=== PATIENT | female | born 2000 | race Two or more races ===

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

== ENCOUNTER 2023-04-24 12:17 | Outpatient (REF) | payer MEDICAID, SELFPAY ==
--- NOTE | ~2023-04-24 | XR_ITS ---
EXAMINATION: XR CHEST CLINICAL INFORMATION: Cough for 7 months COMPARISON: Left RIBS of 08/30/2020 radiographs. Chest radiographs of 10/19/2012. TECHNIQUE: 2 views of the chest were obtained. FINDINGS: There is no gross pneumothorax. Lungs are well-inflated. Heart size is normal. Mild levoscoliosis of the thoracic spine. There is no pleural effusion. Mild hazy opacity in the lower left lung may represent pneumonia. Mild degenerative changes in the thoracic spine. XR/XR chest 2V IMPRESSION: Mild hazy opacity in the lower left lung may represent pneumonia. Recommend follow-up imaging in 4-6 weeks to confirm resolution and exclude underlying pathology. Stat report provided as requested to the referring clinician at the time the exam was presented for interpretation on 04/24/2023 at 12:55 PM.
[2023-04-24 13:34] LABS: Hematocrit 43.5 % (37.0-47.0); Hemoglobin 13.8 g/dl (12.0-16.0); Mean Corpuscular HGB Conc 31.7 g/dl (31.0-35.0); Mean Corpuscular Hemoglobin 27.2 pg (27.0-33.0); Mean Corpuscular Volume 85.6 fL (80.0-98.0); Mean Platelet Volume 9.9 fL (9.4-12.3); Platelet Count 359 X10*3/uL (160-400); Red Blood Count 5.08 X10*6/uL (4.20-5.50); Red Cell Distribution Width 14.2 % (11.0-16.0); White Blood Count 7.2 X10*3/uL (4.8-10.8)
[2023-04-24 14:27] LABS: Estimated Average Glucose 100 mg/dL; Hemoglobin A1c % 5.1 % (<6.0)
[2023-04-24 14:29] LABS: Alanine Aminotransferase 11 U/L (0-31); Albumin Level 4.4 g/dL (3.5-5.0); Alkaline Phosphatase 96 U/L (39-117); Anion Gap 10 (12-20); Aspartate Amino Transferase 16 U/L (5-31); Bilirubin Total 0.2 mg/dL (0.0-1.0); Blood Urea Nitrogen 7 mg/dL (9-16); Calcium 9.4 mg/dL (8.4-10.2); Carbon Dioxide 25 mmol/L (22-29); Chloride 110 mmol/L (96-108); Cholesterol 155 mg/dL (<200); Estimated Glomerular Filt Rate > 60; Glucose Random 84 mg/dL (60-115); HDL Cholesterol 31 mg/dL (>40); LDL Cholesterol Calculated 89 mg/dL (<100); Potassium 3.8 mmol/L (3.3-5.1); Sodium 141 mmol/L (135-145); Total Protein 7.9 g/dL (6.5-8.0); Triglycerides 175 mg/dL (<150)
[2023-04-24 14:35] LABS: TSH reflex Free T4 1.75 uIU/mL (0.32-4.0)
[2023-04-25 02:32] LABS: CT PCR NOT DETECTED (Not Detect.); NG PCR NOT DETECTED (Not Detect.)
[2023-04-25 08:26] LABS: Syphilis Screen Nonreactive (Nonreactive)
[2023-04-25 08:45] LABS: HBsAGNum1 0.41 S/CO (0.00-0.99); Hepatitis B Surface Antigen Negative (Negative)
[2023-04-25 08:48] LABS: HBS Num1 1.99 mIU/mL (0-7.99); HBc Num1 0.07 S/CO (0.00-0.79); HIV AB/AG Nonreactive (Nonreactive); HIV Num 1 0.07 S/CO (0.00-0.99); Hepatitis B Core Antibody Nonreactive (Nonreactive); ~HepC Num1 0.09 S/CO (0.00-0.79); ~Hepatitis B Surface Antibody NONREACTIVE (Nonreactive); ~Hepatitis C Antibody Nonreactive (Nonreactive)
== END 2023-04-24 12:18 | disposition home or self-care (01) ==
LOC: HO.HHCX 12:17
PROVIDERS: Visit Provider Student in an Organized Health Care Education/Training Program
DX: Z00.00 Encounter for general adult medical examination without abnormal findings (principal); R05.9 Cough, unspecified; Z11.3 Encounter for screening for infections with a predominantly sexual mode of transmission
CPT/HCPCS: 0353U; 36415; 71046; 80053; 80061; 83036; 84443; 85027; 86704; 86706; 86780; 86803; 87340; 87389

== ENCOUNTER 2023-06-11 15:22 | Outpatient (REF) | payer MEDICAID, SELFPAY ==
[2023-06-11] MEDS: iohexoL 350 MG/ML 75 ML INFUS..BTL 65 ML IV (16:12)
== END 2023-06-11 15:23 | disposition home or self-care (01) ==
LOC: HO.CT 15:22
PROVIDERS: PCP Pediatrics; Visit Provider Student in an Organized Health Care Education/Training Program
DX: R05.3 Chronic cough (principal); R93.89 Abnormal findings on diagnostic imaging of other specified body structures
CPT/HCPCS: 71260; Q9967

== ENCOUNTER 2023-08-14 15:14 | Outpatient (AMB) | payer MEDICAID, SELFPAY ==
[2023-08-14 15:21] VITALS: BP 118/70; PULSE 72; O2SAT 98; BMI 26.4
--- NOTE | 2023-08-14 15:21 | MHC.OFFVIS ---
Intake Vital Signs 08/14/23 15:21 Height 5 ft 1 in Weight 140 lb BMI 26.4 BP 118/70 Blood Pressure Location Lt brachial Position Sitting Pulse 72 Pulse Source Pulse Oximeter Pulse Oximetry (%) 98 Oxygen Delivery Method Room Air Intake Visit Reasons: Cough Blog Writer Required: No Appliance Adjuster: Appliance Adjuster offered & declined Accompanied by: Mother Allergies No Known Allergies Allergy (Unverified 08/14/23 15:23) Medication List - Last Reconciled 08/14/23 by Nusrat Schmitt LPN cetirizine (Allergy Relief (cetirizine)) 10 mg PO DAILY PRN HPI Cough HPI Details Omayrelramy is a pleasant 23-year-old female, never smoker, with no significant past medical history. She was referred from PCP for pulmonary evaluation the persistent dry cough. She reports cough has been present for the past year that is dry in nature and not related to any triggers or activity. She denies any dyspnea, wheezing, or chest tightness. She denies prior diagnosis of asthma. She reports brother has asthma. She reports symptoms consistent with environmental allergies using claritin for spring allergies with good effect. She denies postnasal drip or GERD symptoms. She does have 2 dogs and 1 cat. She notes hives after petting either animal. She denies eczema. She denies any occupational exposures. Of note, PCP sent for CXR in April which was suggestive of pneumonia, however repeat imaging was unremarkable. She denies any treatment with antibiotics or prednisone during that time. [facility] Social History (Updated 08/14/23 @ 15:25 by Nusrat Schmitt LPN) Patient Tobacco Use Status: Never used Tobacco Smoked in Last 30 Days: No Review of Systems Const Denies chills, Denies excessive sweating, Denies fever(s), Denies headache(s) and Denies night sweats Eyes Denies dry eyes, Denies irritation and Denies itchy eyes ENT Reports Normal hearing present, Denies headache(s), Denies nasal congestion, Denies nasal discharge, Denies post nasal drip and Denies sore throat Card Denies chest pain, Denies chest pain at rest, Denies chest pain with activity, Denies claudication, Denies leg edema, Denies dyspnea, Denies dyspnea on exertion, Denies orthopnea and Denies paroxysmal nocturnal dyspnea Resp Denies chest congestion, Reports cough, Denies excessive phlegm production, Denies pain on inspiration, Denies pain with cough, Denies dyspnea, Denies dyspnea on exertion, Denies stridor and Denies wheezing Musc Denies myalgias Neuro Reports Normal hearing present and Denies headache(s) Endo Denies excessive sweating Brain/Lymph Denies lymphadenopathy Aller/Immun Denies itchy eyes, Denies seasonal rhinorrhea and Denies wheezing Physical Exam Vital Signs: Last Vital Signs Pulse 72 08/14/23 15:21 BP 118/70 08/14/23 15:21 Pulse Ox 98 08/14/23 15:21 Oxygen Delivery Method Room Air 08/14/23 15:21 BMI result Body Mass Index 26.4 Const General: cooperative, healthy appearing, comfortable, no acute distress, well developed and alert Nutritional Appearance: obese Orientation/consciousness: patient oriented x3 Limitations: no limitations HEENT Head: Yes normal to inspection, Yes normocephalic and Yes atraumatic Ears: hearing grossly normal bilaterally and external ears normal Eyes General: appearance normal, both eyes and all related structures Eyelids: Yes eyelids normal Sclerae: sclerae normal EOM: EOMs intact bilaterally Neck Neck: Yes normal visual inspection and Yes no lymphadenopathy Lymphatic: no lymphadenopathy noted Chest Chest palpation & inspection: normal inspection of the chest Resp Other: persistent dry cough throughout visit with diminished lung sounds on expiration, cough worsened with initiation of albuterol neb Effort & Inspection: normal respiratory effort, able to speak in complete sentences, no audible wheezes, no stridor, not tachypneic, no tripod positioning and no use of accessory muscles Cardio Jugular venous distension: no JVD Rate: regular rate Rhythm: regular rhythm Skin Other: warm, dry General skin exam: no rashes or lesions noted Neuro General: patient oriented x3 Cranial nerves: Yes Normal hearing present Cognition (Neuro): normal cognition Gait exam (Neuro): Normal gait present Extrem General: Yes normal to inspection, Yes capillary refill normal, Yes no clubbing, cyanosis or edema and Yes no pedal edema Psych Appearance: grossly normal and well kempt Speech and movement: Normal speech and movement present and Clear speech present Affect: normal affect Attitude: cooperative Thought process: Normal thought process present Thought content: Normal thought content present Insight: Good insight present (Psych) Judgement: Good judgement present (Psych) Office Procedures Nebulizer Treatment Nebulizer Treatment [id number]/[id number] RX initial, or Nebulizer Subsequent Treatment Office Meds albuterol sulfate 2.5 mg/3 mL (0.083 %) solution for nebulization Performing Provider: Kelsey Noble NP Performing Location: [facility] Pulmonology Services-[facility] Administered by: Nusrat Schmitt LPN on 08/14/23 15:51 Dose Route Admin Location Dispensed Lot Number Expiration Date [facility] Director Phone 2.5 mg inhalation 3 mL [id number] 05/09/24 [id number] [facility] Assessment & Plan Assessment & Plan (1) Reactive airway disease: Code(s): J45.909 - Unspecified asthma, uncomplicated (2) Environmental allergies: Code(s): Z91.09 - Other allergy status, other than to drugs and biological substances (3) Cough: Code(s): R05.9 - Cough, unspecified Plan Omayrely's symptoms are suggestive of reactive airway disease/asthma with allergic contribution. Patient was given albuterol nebulizer in office, but discontinued after initiation as patient's cough worsened. Will hold off on any empiric treatment and send for PFT/RAST to evaluate. All questions were answered and patient is in agreement of plan. Will follow up to review results or sooner if needed. Orders: Orders Immunoglobulin E Today Z91.09 - Other allergy status, other than to drugs and biological substances PFT pulmonary function test Today R05.9 - Cough, unspecified Complete Blood Count Auto Diff Today Z91.09 - Other allergy status, other than to drugs and biological substances AMB Nebulizer Treatment Today J45.909 - Unspecified asthma, uncomplicated Coding Level of Care Code New Pt Level 4 (21630) Diagnoses Reactive airway disease J45.909 Environmental allergies Z91.09 Cough R05.9 CPT Codes Nebulizer Treatment - Nebulizer Treatment, initial or subsequent: [id number] RX initial, or Nebulizer Subsequent Treatment ([id number])
== END 2023-08-14 16:00 | disposition home or self-care (01) ==
PROVIDERS: PCP Student in an Organized Health Care Education/Training Program; Referring Provider Student in an Organized Health Care Education/Training Program; Visit Provider Nurse Practitioner Family
DX: J45.909 Unspecified asthma, uncomplicated (principal); Z91.09 Other allergy status, other than to drugs and biological substances; R05.9 Cough, unspecified
CPT/HCPCS: 99204

== ENCOUNTER → 2023-08-14 15:14 | Outpatient (BNVA) | payer MEDICAID, SELFPAY | PROVIDERS: PCP Student in an Organized Health Care Education/Training Program; Referring Provider Student in an Organized Health Care Education/Training Program; Visit Provider Nurse Practitioner Family | DX: J45.909 Unspecified asthma, uncomplicated (principal); Z91.09 Other allergy status, other than to drugs and biological substances; R05.9 Cough, unspecified | CPT/HCPCS: 94640; 99212 ==

== ENCOUNTER 2023-09-04 11:49 | Outpatient (REF) | payer MEDICAID, SELFPAY ==
[2023-09-04 13:30] LABS: MANUAL DIFF FLAG NO
[2023-09-04 13:48] LABS: Basophils Percent Auto 0.4 % (0-2); Eosinophils Absolute Auto 0.4 X10*3/uL (0.0-0.4); Eosinophils Percent Auto 4.4 % (0-4); Hematocrit 41.5 % (37.0-47.0); Hemoglobin 13.3 g/dl (12.0-16.0); Imm Gran Abs Auto 0.02 X10*3/uL (0.00-0.03); Imm Gran Pct Auto 0.2 % (0.0-0.4); Lymphocytes Absolute Auto 1.7 X10*3/uL (1.2-4.9); Mean Corpuscular Hemoglobin 26.9 pg (27.0-33.0); Mean Corpuscular Volume 83.8 fL (80.0-98.0); Mean Platelet Volume 10.1 fL (9.4-12.3); Monocytes Absolute Auto 0.4 X10*3/uL (0.1-1.2); Monocytes Percent Auto 5.3 % (2-11); Neutrophils Absolute Auto 5.6 x10*3/uL (2.0-8.3); Neutrophils Percent Auto 68.7 % (45-73); Platelet Count 357 X10*3/uL (160-400); Red Blood Count 4.95 X10*6/uL (4.20-5.50); Red Cell Distribution Width 14.8 % (11.0-16.0); White Blood Count 8.1 X10*3/uL (4.8-10.8)
[2023-09-04 13:57] LABS: Alanine Aminotransferase 21 U/L (0-31); Albumin Level 4.2 g/dL (3.5-5.0); Alkaline Phosphatase 79 U/L (39-117); Aspartate Amino Transferase 19 U/L (5-31); Bilirubin Direct < 0.2 mg/dL (0.0-0.5); Bilirubin Total 0.2 mg/dL (0.0-1.0); Total Protein 7.7 g/dL (6.5-8.0)
[2023-09-15 13:34] LABS: Immunoglobulin E 901 kU/L (<OR=114)
== END 2023-09-04 11:50 | disposition home or self-care (01) ==
LOC: HO.HHCL 11:49
PROVIDERS: Advanced Practice Midwife; Visit Provider Nurse Practitioner Family
DX: Z12.4 Encounter for screening for malignant neoplasm of cervix (principal); R10.11 Right upper quadrant pain; Z91.09 Other allergy status, other than to drugs and biological substances
CPT/HCPCS: 36415; 80076; 82785; 85025; 88142

== ENCOUNTER 2023-09-27 16:14 | Outpatient (REF) | payer MEDICAID, SELFPAY ==
[2023-10-02 23:28] LABS: Immunoglobulin A 244 mg/dL (47-310); Transglutaminase IgA <1.0 U/mL
== END 2023-09-27 16:15 | disposition home or self-care (01) ==
LOC: HO.HHCL 16:14
PROVIDERS: Visit Provider Registered Nurse
DX: R10.13 Epigastric pain (principal); R10.84 Generalized abdominal pain
CPT/HCPCS: 36415; 82784; 86364

== ENCOUNTER 2023-10-15 20:52 | Outpatient (REF) | payer MEDICAID, SELFPAY | END 2023-10-15 20:53 | disposition home or self-care (01) | LOC: HO.HHCLNP 20:52 | PROVIDERS: Visit Provider Registered Nurse | DX: R10.13 Epigastric pain (principal); R11.2 Nausea with vomiting, unspecified | CPT/HCPCS: 87338 ==

== ENCOUNTER 2024-03-13 15:52 | Outpatient (AMB) | payer MEDICAID, SELFPAY ==
--- NOTE | 2024-03-13 15:53 | MHC.OFFVIS ---
Vital Signs 03/13/24 15:54 Height 5 ft 1 in Weight 120 lb 6 oz BMI 22.7 BP 120/78 Blood Pressure Location Rt brachial Position Sitting Pulse 61 Pulse Source Pulse Oximeter Pulse Oximetry (%) 98 Oxygen Delivery Method Room Air Intake Visit Reasons: cough Allergies No Known Allergies Allergy (Unverified 03/13/24 15:59) HPI HPI cough: Details: Maddy is a pleasant 23-year-old female, never smoker, with no significant past medical history. She was referred from PCP for pulmonary evaluation the persistent dry cough. She reports cough has been present for the past year that is dry in nature and not related to any triggers or activity. She denies any dyspnea, wheezing, or chest tightness. At the last visit, she was sent for labs and PFT. Today presents to review. Unfortunately, patient was never scheduled for PFT. Will have staff look into this. Since the last visit, she has had a 20 lb weight loss which she attributes to GI symptoms including abdominal pain, nausea and vomiting ultimately found to have significant constipation and started on miralax with improvements. She denies any reflux symptoms. COUNTS INCLUDE 234 BEDS AT THE [facility] Social History Patient Tobacco Use Status: Never used Tobacco Review of Systems Const Denies chills, Denies excessive sweating, Denies fever(s), Denies headache(s) and Denies night sweats Eyes Denies dry eyes, Denies irritation and Denies itchy eyes ENT Reports Normal hearing present, Denies headache(s), Denies nasal congestion, Denies nasal discharge, Denies post nasal drip and Denies sore throat Card Denies chest pain, Denies chest pain at rest, Denies chest pain with activity, Denies claudication, Denies leg edema, Denies dyspnea, Denies dyspnea on exertion, Denies orthopnea and Denies paroxysmal nocturnal dyspnea Resp Denies chest congestion, Reports cough, Denies excessive phlegm production, Denies pain on inspiration, Denies pain with cough, Denies dyspnea, Denies dyspnea on exertion, Denies stridor and Denies wheezing Musc Denies myalgias Neuro Reports Normal hearing present and Denies headache(s) Endo Denies excessive sweating Brain/Lymph Denies lymphadenopathy Aller/Immun Denies itchy eyes, Denies seasonal rhinorrhea and Denies wheezing Physical Exam Vital Signs: Last Vital Signs Pulse 61 03/13/24 15:54 BP 120/78 03/13/24 15:54 Pulse Ox 98 03/13/24 15:54 Oxygen Delivery Method Room Air 03/13/24 15:54 BMI result Body Mass Index 22.7 Const General: cooperative, healthy appearing, comfortable, no acute distress, well developed and alert Orientation/consciousness: patient oriented x3 Limitations: no limitations HEENT Head: Yes normal to inspection, Yes normocephalic and Yes atraumatic Ears: hearing grossly normal bilaterally and external ears normal Eyes General: appearance normal, both eyes and all related structures Eyelids: Yes eyelids normal Sclerae: sclerae normal EOM: EOMs intact bilaterally Neck Neck: Yes normal visual inspection and Yes no lymphadenopathy Lymphatic: no lymphadenopathy noted Chest Chest palpation & inspection: normal inspection of the chest Resp Other: persistent dry cough throughout visit with diminished lung sounds on expiration, cough worsened with initiation of albuterol neb Effort & Inspection: normal respiratory effort, able to speak in complete sentences, no audible wheezes, no stridor, not tachypneic, no tripod positioning and no use of accessory muscles Cardio Jugular venous distension: no JVD Rate: regular rate Rhythm: regular rhythm Skin Other: warm, dry General skin exam: no rashes or lesions noted Neuro General: patient oriented x3 Cranial nerves: Yes Normal hearing present Cognition (Neuro): normal cognition Gait exam (Neuro): Normal gait present Extrem General: Yes normal to inspection, Yes capillary refill normal, Yes no clubbing, cyanosis or edema and Yes no pedal edema Psych Appearance: grossly normal and well kempt Speech and movement: Normal speech and movement present and Clear speech present Affect: normal affect Attitude: cooperative Thought process: Normal thought process present Thought content: Normal thought content present Insight: Good insight present (Psych) Judgement: Good judgement present (Psych) Assessment & Plan Assessment & Plan (1) Asthma: Code(s): J45.909 - Unspecified asthma, uncomplicated Category: Medical (2) Environmental allergies: Code(s): Z91.09 - Other allergy status, other than to drugs and biological substances Category: Medical Plan Omayrely's symptoms are likely related to underlying asthma with a significant allergic component. She had mildly elevated eosinophil level and IgE <900. Will empirically start on ICS and Singulair. Reviewed side effects and discussed importance of good oral hygiene to prevent thrush. Discussed ways to minimize allergen exposures. Will look into why PFT was not scheduled and follow up in 4-6 weeks. All questions were answered and patient is in agreement of plan. Orders: Orders Resp Allergy Profile Region I Today Z91.09 - Other allergy status, other than to drugs and biological substances Medications: New montelukast (Singulair) 10 mg PO BEDTIME 30 tabs 3RF fluticasone propionate 110 mcg/actuation administer with spacer 2 puffs inhalation BID 12 grams 3RF Coding Level of Care Code Est Pt Level 4 (17036) Diagnoses Asthma J45.909 Environmental allergies Z91.09
[2024-03-13 15:54] VITALS: BP 120/78; PULSE 61; O2SAT 98; BMI 22.7
== END 2024-03-13 16:33 | disposition home or self-care (01) ==
PROVIDERS: PCP Student in an Organized Health Care Education/Training Program; Visit Provider Nurse Practitioner Family
DX: J45.909 Unspecified asthma, uncomplicated (principal); Z91.09 Other allergy status, other than to drugs and biological substances
CPT/HCPCS: 99214

== ENCOUNTER → 2024-03-13 15:52 | Outpatient (BNVA) | payer MEDICAID, SELFPAY | PROVIDERS: PCP Student in an Organized Health Care Education/Training Program; Visit Provider Nurse Practitioner Family | DX: J45.909 Unspecified asthma, uncomplicated (principal); Z91.09 Other allergy status, other than to drugs and biological substances | CPT/HCPCS: 99212 ==

== ENCOUNTER 2024-04-17 15:58 | Outpatient (REF) | payer MEDICAID, SELFPAY ==
--- NOTE | 2024-04-17 16:00 | PFT_ITS ---
Flows: FEV1: 111 % of predicted at 3.32 L FVC: 108 % of predicted at 3.70 L FEV1/FVC: 90 % Bronchodilator response: Patient refused bronchodilator testing Volumes: Total lung capacity: 104 % of predicted at 4.69 L Residual volume: 81 % of predicted at 0.78 L Slow vital capacity: 112 % of predicted at 3.84 L Expiratory reserve volume: 75 % of predicted at 0.81 L Diffusion capacity: Normal Impression: No obstructive or restrictive ventilatory defect. Patient refused bronchodilator testing. Essentially normal pulmonary function test. MTDD
== END 2024-04-17 15:59 | disposition home or self-care (01) ==
LOC: HO.RESP 15:58
PROVIDERS: PCP Student in an Organized Health Care Education/Training Program; Visit Provider Nurse Practitioner Family
DX: R05.9 Cough, unspecified (principal)
CPT/HCPCS: 94010; 94640; 94727; 94729

== ENCOUNTER → 2024-04-17 16:00 | Outpatient (BNV) | payer MEDICAID, SELFPAY | PROVIDERS: PCP Student in an Organized Health Care Education/Training Program; Visit Provider Internal Medicine Pulmonary Disease | DX: R05.9 Cough, unspecified (principal) | CPT/HCPCS: 94060; 94727; 94729 ==

== ENCOUNTER 2024-04-21 15:52 | Outpatient (AMB) | payer MEDICAID, SELFPAY ==
[2024-04-21 15:55] VITALS: BP 108/66; PULSE 66; O2SAT 98; BMI 22.7
--- NOTE | 2024-04-21 15:55 | MHC.OFFVIS ---
Vital Signs 04/21/24 15:55 Height 5 ft 1 in Weight 120 lb 6 oz BMI 22.7 BP 108/66 Blood Pressure Location Rt brachial Position Sitting Pulse 66 Pulse Source Pulse Oximeter Pulse Oximetry (%) 98 Oxygen Delivery Method Room Air Intake Visit Reasons: Cough Allergies No Known Allergies Allergy (Unverified 04/21/24 15:57) HPI HPI Cough: Details: Maddy is a pleasant 23-year-old female, never smoker, with no significant past medical history. She was referred from PCP for pulmonary evaluation the persistent dry cough. She reports cough has been present for the past year that is dry in nature and not related to any triggers or activity. She denies any dyspnea, wheezing, or chest tightness. Prior RAST significant for multiple environmental allergies, IgE of 901 and elevated eosinophils. She was started on advair as well as singulair with minimal improvement in symptoms. She presents today to review PFT results. [facility] Social History (Reviewed 04/21/24 @ 15:57 by Genevieve Deleon [facility]) Patient Tobacco Use Status: Never used Tobacco Review of Systems Const Denies chills, Denies excessive sweating, Denies fever(s), Denies headache(s) and Denies night sweats Eyes Denies dry eyes, Denies irritation and Denies itchy eyes ENT Reports Normal hearing present, Denies headache(s), Denies nasal congestion, Denies nasal discharge, Denies post nasal drip and Denies sore throat Card Denies chest pain, Denies chest pain at rest, Denies chest pain with activity, Denies claudication, Denies leg edema, Denies dyspnea, Denies dyspnea on exertion, Denies orthopnea and Denies paroxysmal nocturnal dyspnea Resp Denies chest congestion, Reports cough, Denies excessive phlegm production, Denies pain on inspiration, Denies pain with cough, Denies dyspnea, Denies dyspnea on exertion, Denies stridor and Denies wheezing Musc Denies myalgias Neuro Reports Normal hearing present and Denies headache(s) Endo Denies excessive sweating Brain/Lymph Denies lymphadenopathy Aller/Immun Denies itchy eyes, Denies seasonal rhinorrhea and Denies wheezing Physical Exam Vital Signs: Last Vital Signs Pulse 66 04/21/24 15:55 BP 108/66 04/21/24 15:55 Pulse Ox 98 04/21/24 15:55 Oxygen Delivery Method Room Air 04/21/24 15:55 BMI result Body Mass Index 22.7 Const General: cooperative, healthy appearing, comfortable, no acute distress, well developed and alert Orientation/consciousness: patient oriented x3 Limitations: no limitations HEENT Head: Yes normal to inspection, Yes normocephalic and Yes atraumatic Ears: hearing grossly normal bilaterally and external ears normal Eyes General: appearance normal, both eyes and all related structures Eyelids: Yes eyelids normal Sclerae: sclerae normal EOM: EOMs intact bilaterally Neck Neck: Yes normal visual inspection and Yes no lymphadenopathy Lymphatic: no lymphadenopathy noted Chest Chest palpation & inspection: normal inspection of the chest Resp Effort & Inspection: normal respiratory effort, able to speak in complete sentences, no audible wheezes, no cough, no stridor, not tachypneic, no tripod positioning and no use of accessory muscles Auscultation: clear to auscultation bilaterally Cardio Jugular venous distension: no JVD Rate: regular rate Rhythm: regular rhythm Skin Other: warm, dry General skin exam: no rashes or lesions noted Neuro General: patient oriented x3 Cranial nerves: Yes Normal hearing present Cognition (Neuro): normal cognition Gait exam (Neuro): Normal gait present Extrem General: Yes normal to inspection, Yes capillary refill normal, Yes no clubbing, cyanosis or edema and Yes no pedal edema Psych Appearance: grossly normal and well kempt Speech and movement: Normal speech and movement present and Clear speech present Affect: normal affect Attitude: cooperative Thought process: Normal thought process present Thought content: Normal thought content present Insight: Good insight present (Psych) Judgement: Good judgement present (Psych) Assessment & Plan Assessment & Plan (1) Asthma: Code(s): J45.909 - Unspecified asthma, uncomplicated Category: Medical (2) Environmental allergies: Code(s): Z91.09 - Other allergy status, other than to drugs and biological substances Category: Medical Plan Omayrely's symptoms are likely related to underlying asthma with a significant allergic component. PFT did not reveal any obstructive defect, could not tolerate albuterol nebulizer so bronchodilator not performed. Increased TLC and DLCO, suggestive of asthma. She had mildly elevated eosinophil level and IgE <900. She reports minimal change with Advair and Singulair. However during visit, she did not cough once nor did she have postexhalation cough as she did in prior visits, with overall improvements in lung aeration. Will trial prednisone. Side effects reviewed. Patient reluctant to use Advair, discussed if symptoms improve with prednisone then restart Advair and continue singulair. Consider daily antihistamine. She agreed to call once she is down to 10 mg of prednisone to update office on symptoms. All questions were answered and patient is in agreement of plan. Will follow up in 6 weeks or sooner if needed. Medications: New prednisone see taper instructions; 40 mg Daily x3 days, 30 mg daily x3 days, 20 mg daily x3 days, 10 mg daily x3 days 10 mg PO DIRECTED 30 tabs 0RF Coding Level of Care Code Est Pt Level 4 (68097) Diagnoses Asthma J45.909 Environmental allergies Z91.09
== END 2024-04-21 16:23 | disposition home or self-care (01) ==
PROVIDERS: PCP Student in an Organized Health Care Education/Training Program; Visit Provider Nurse Practitioner Family
DX: J45.909 Unspecified asthma, uncomplicated (principal); Z91.09 Other allergy status, other than to drugs and biological substances
CPT/HCPCS: 99214

== ENCOUNTER → 2024-04-21 15:52 | Outpatient (BNVA) | payer MEDICAID, SELFPAY | PROVIDERS: PCP Student in an Organized Health Care Education/Training Program; Visit Provider Nurse Practitioner Family | DX: J45.909 Unspecified asthma, uncomplicated (principal); Z91.09 Other allergy status, other than to drugs and biological substances | CPT/HCPCS: 99212 ==

== ENCOUNTER 2024-04-28 15:27 | Outpatient (REF) | payer MEDICAID, SELFPAY ==
[2024-04-28 16:28] LABS: Hematocrit 39.3 % (37.0-47.0); Hemoglobin 12.8 g/dl (12.0-16.0); Mean Corpuscular HGB Conc 32.6 g/dl (31.0-35.0); Mean Corpuscular Hemoglobin 27.8 pg (27.0-33.0); Mean Corpuscular Volume 85.4 fL (80.0-98.0); Mean Platelet Volume 9.7 fL (9.4-12.3); Platelet Count 365 X10*3/uL (160-400); White Blood Count 13.1 X10*3/uL (4.8-10.8)
[2024-04-28 18:27] LABS: Alanine Aminotransferase 10 U/L (0-31); Albumin Level 4.4 g/dL (3.5-5.0); Alkaline Phosphatase 72 U/L (39-117); Anion Gap 10 (12-20); Aspartate Amino Transferase 12 U/L (5-31); Bilirubin Total 0.2 mg/dL (0.0-1.0); Blood Urea Nitrogen 14 mg/dL (9-16); Calcium 9.1 mg/dL (8.4-10.2); Carbon Dioxide 25 mmol/L (22-29); Chloride 110 mmol/L (96-108); Estimated Glomerular Filt Rate > 60; Glucose Random 112 mg/dL (60-115); Potassium 3.7 mmol/L (3.3-5.1); Sodium 141 mmol/L (135-145); Total Protein 7.5 g/dL (6.5-8.0)
[2024-04-29 03:44] LABS: Syphilis Screen Nonreactive (Nonreactive)
[2024-04-29 04:21] LABS: HBS Num1 365.96 mIU/mL (0-7.99); HBc Num1 0.09 S/CO (0.00-0.79); HBsAGNum1 0.42 S/CO (0.00-0.99); HIV AB/AG Nonreactive (Nonreactive); HIV Num 1 0.05 S/CO (0.00-0.99); Hepatitis B Core Antibody Nonreactive (Nonreactive); Hepatitis B Surface Antigen Negative (Negative); ~Hepatitis B Surface Antibody REACTIVE (Nonreactive); ~Hepatitis C Antibody Nonreactive (Nonreactive)
[2024-04-29 05:34] LABS: Estimated Average Glucose 103 mg/dL; Hemoglobin A1C 107.9648 umol/L; Hemoglobin A1c % 5.2 % (<6.0); Total Hemoglobin (HGBA1C) 3254.4207 umol/L
[2024-04-29 05:34] LABS: CT PCR NOT DETECTED (Not Detect.); NG PCR NOT DETECTED (Not Detect.)
== END 2024-04-28 15:28 | disposition home or self-care (01) ==
LOC: HO.HHCL 15:27
PROVIDERS: Visit Provider Student in an Organized Health Care Education/Training Program
DX: Z00.00 Encounter for general adult medical examination without abnormal findings (principal)
CPT/HCPCS: 36415; 80053; 83036; 84443; 85027; 86704; 86706; 86780; 86803; 87340; 87389; 87491; 87591

== ENCOUNTER 2025-02-17 15:26 | Outpatient (AMB) | payer MEDICAID, SELFPAY ==
[2025-02-17 15:37] VITALS: BP 110/68; PULSE 73; O2SAT 98; BMI 26.2
--- NOTE | 2025-02-17 15:37 | A.OFFVIS_ITS ---
Vital Signs 02/17/25 15:37 Height 5 ft 1 in Weight 138 lb 8 oz BMI 26.2 BP 110/68 Blood Pressure Location Rt brachial Position Sitting Pulse 73 Pulse Source Pulse Oximeter Pulse Oximetry (%) 98 Oxygen Delivery Method Room Air Intake Visit Reasons: cough Allergies No Known Allergies Allergy (Unverified 02/17/25 15:40) HPI HPI cough: Details: Maddy is a pleasant 24-year-old female, never smoker, with underlying asthma. She was lost to follow up last seen in April 2024 and continues with persistent dry chronic cough for greater than 1 year. Denies dyspnea, wheezing or chest tightness. Prior PFT and labs suggestive of allergic asthma with IgE 901 and elevated eosinophils. She had previously trialed Singulair, Flovent as well as Advair with no significant change in symptoms however unclear how long patient trialed medications. She was also placed on prednisone but does not recall it providing significant relief. She uses PRN antihistamine mostly in the Spring. Prior CXR [address] 06/2024 unremarkable. She does have a h/o viltigo however denies any other symptoms suggestive of CTD. Denies family history of CTD/ILD. She denies any visits to urgent care or hospitalizations since the last visit. She denies any triggers reporting symptoms are not dependent on environment however does have cats and dogs at home. She denies reflux or post nasal drip. [facility] Social History Patient Tobacco Use Status: Never used Tobacco Review of Systems Const Denies chills, Denies excessive sweating, Denies fever(s), Denies headache(s) and Denies night sweats Eyes Denies dry eyes, Denies irritation and Denies itchy eyes ENT Reports Normal hearing present, Denies headache(s), Denies nasal congestion, Denies nasal discharge, Denies post nasal drip and Denies sore throat Card Denies chest pain, Denies chest pain at rest, Denies chest pain with activity, Denies claudication, Denies leg edema, Denies dyspnea, Denies dyspnea on exertion, Denies orthopnea and Denies paroxysmal nocturnal dyspnea Resp Denies chest congestion, Reports cough, Denies excessive phlegm production, Denies pain on inspiration, Denies pain with cough, Denies dyspnea, Denies dyspnea on exertion, Denies stridor and Denies wheezing Musc Denies myalgias Neuro Reports Normal hearing present and Denies headache(s) Endo Denies excessive sweating Brain/Lymph Denies lymphadenopathy Aller/Immun Denies itchy eyes, Denies seasonal rhinorrhea and Denies wheezing Physical Exam Vital Signs: Last Vital Signs Pulse 73 02/17/25 15:37 BP 110/68 02/17/25 15:37 Pulse Ox 98 02/17/25 15:37 Oxygen Delivery Method Room Air 02/17/25 15:37 BMI result Body Mass Index 26.2 Const General: cooperative, healthy appearing, comfortable, no acute distress, well developed and alert Orientation/consciousness: patient oriented x3 Limitations: no limitations HEENT Head: Yes normal to inspection, Yes normocephalic and Yes atraumatic Ears: hearing grossly normal bilaterally and external ears normal Eyes General: appearance normal, both eyes and all related structures Eyelids: Yes eyelids normal Sclerae: sclerae normal EOM: EOMs intact bilaterally Neck Neck: Yes normal visual inspection and Yes no lymphadenopathy Lymphatic: no lymphadenopathy noted Chest Chest palpation & inspection: normal inspection of the chest Resp Effort & Inspection: normal respiratory effort, able to speak in complete sentences, no audible wheezes, no cough, no stridor, not tachypneic, no tripod positioning and no use of accessory muscles Auscultation: diminished lung sounds Cardio Jugular venous distension: no JVD Rate: regular rate Rhythm: regular rhythm Skin Other: warm, dry General skin exam: no rashes or lesions noted Neuro General: patient oriented x3 Cranial nerves: Yes Normal hearing present Cognition (Neuro): normal cognition Gait exam (Neuro): Normal gait present Extrem General: Yes normal to inspection, Yes capillary refill normal, Yes no clubbing, cyanosis or edema and Yes no pedal edema Psych Appearance: grossly normal and well kempt Speech and movement: Normal speech and movement present and Clear speech present Affect: normal affect Attitude: cooperative Thought process: Normal thought process present Thought content: Normal thought content present Insight: Good insight present (Psych) Judgement: Good judgement present (Psych) Assessment & Plan Assessment & Plan (1) Asthma: Code(s): J45.909 - Unspecified asthma, uncomplicated Category: Medical (2) Environmental allergies: Code(s): Z91.09 - Other allergy status, other than to drugs and biological substances Category: Medical Plan Omayrely's symptoms are likely related to underlying asthma with a significant allergic component. PFT did not reveal any obstructive defect, could not tolerate albuterol nebulizer so bronchodilator not performed. Increased TLC and DLCO, suggestive of asthma. She had mildly elevated eosinophil level and IgE 901. She reports minimal change with Advair and Singulair, however may have not trialed long enough to provide notable relief. Patient agreeable to trial Breo. Discussed importance of good oral hygiene. Will also repeat allergy labs and sent for CXR as prior were from 2023. We did discuss possible biologic therapy depending on response to inhaler and labs. Will also send for KALEE to assess for any underlying CTD given h/o vitiligo. Discussed importance of close follow up to resolve cough. All questions were answered and patient is in agreement of plan. Will follow up in 4 weeks or sooner if needed. Orders: Orders Immunoglobulin E Today Z91.09 - Other allergy status, other than to drugs and biological substances Resp Allergy Profile Region I Today Z91.09 - Other allergy status, other than to drugs and biological substances KALEE Reflex Titer and Pattern Today R05.9 - Cough, unspecified Complete Blood Count Auto Diff Today Z91.09 - Other allergy status, other than to drugs and biological substances XR chest 2V Today R05.9 - Cough, unspecified Medications: New fluticasone furoate-vilanterol 200-25 mcg/dose (Breo Ellipta) 1 inh inhalation DAILY 60 ea 3RF Coding Level of Care Code Est Pt Level 4 (80661) Diagnoses Asthma J45.909 Environmental allergies Z91.09
--- OUTSIDE RECORDS SUMMARY | 2025-02-17 18:23 | XMS_ITS | Encounter Summary ---
Author Organization [employer] Address [address] [place] [address] [place] [address] Care Team Providers Care Seam Finisher Name Role Phone Leah Dee MD Primary Care Pro vider Reason for Visit * Reason Onset Date Comments Med Refill 02/12/2025 Encounter Details Date Type Department Care Team (Late st Contact Info) Description 02/12/2025 Telephone [facility] [address] [place], [place] [phone] Leah Dee MD [address] [place], [place] [phone] Med Refill Social History Tobacco Use Types Packs/Day Years Used Date Smoking Tobacco: Never Smokeless Tobacco: Never Alcohol Use Standard Drinks/Week Comments Never 0 (1 standard drink = 0.6 oz pur e alcohol) Depression Answer Date Recorded Patient Health Questionnaire-9 Score 3 08/02/2023 Patient Health Questionnaire-9 Score 3 08/02/2023 Last PHQ-9: Questionnaire Data Not on file 0 08/02/2023 Housing Stability Answer Date Recorded What is your housing situation today? I have jon michael 04/16/[address] you li ve. Do you have problems with any of the following? None of the above 04/16/2023 Food Insecurity Answer Date Recorded Within the past 12 months, y ou worried that your food would run out before you got money to buy more: Sometimes True 2023 Within the past 12 months,th e food you bought just didn't last and you didn't have enough money to get more: Sometimes True 07/24/2023 Transportation Answer Date Recorded In the past 12 months, has l ack of transportation kept you from medical appts, meetings, work or from getting things needed for daily living? No 04/16/2023 Utilities Answer Date Recorded In the past 12 months, has t he electric, gas, oil or water company threatened to shut off services in your home? No 04/16/2023 Depression Answer Date Recorded Patient Health Questionnaire-2 Score 1 08/02/2023 Internet Access Answer Date Recorded Internet Access Q1 Yes 04/21/2024 Internet Access Q2 Not on file 04/21/2024 Comments No Sex and Gender Information Value Date Recorded Sex Assigned at Female 04/09/2022 10:17 AM EDT Legal Sex Female 10:17 AM EDT Gender Identity Female 04/09/2022 10:17 AM EDT Sexual Orientation Straight 04/09/2022 10 :17 AM EDT documented as of this encounter Miscellaneous Notes * Telephone Encounter - Uzma Burroughs LPN - 02/12/2025 1:06 PM EDT Medication pended to PCP. * Telephone Encounter - Rock Nina - 02/12/2025 1:04 PM EDT TC from pt requesting medication refill. Medications needing refill : Disp Refills Start End Slynd 4 MG tablet To be sent to: [facility]/pharmacy [address] [place] [address] [phone] [place] [address] documented in this encounter Plan of Treatment Not on file documented as of this encounter Visit Diagnoses Not on filedocumented in this encounter Additional Health Concerns Assessment Noted Time PHQ-9 Depression Total Score: 3 08/02/19 24 3:41 PM EST documented as of this encounter Care Teams Seam Finisher Relationship Specialty Start Date End Date Leah Dee MD [address] [place] [phone] PCP - General Internal Medicine 02/19/23 documented as of this encounter
--- OUTSIDE RECORDS SUMMARY | 2025-02-17 18:23 | XMS_ITS | Clinical Summary ---
Author Organization [employer] Address [address] [place] [address] 7 [place] [address] Care Team Providers Care Power Equipment Mechanics Instructor Name Role Phone Leah Dee MD Primary Care Pro vider Allergies No known active allergies Medications mometasone (Elocon) 0.1 % cream Apply 1 Application. topically in the morning. 09/21/19 22 Active Slynd 4 MG tablet TAKE 1 TABLET BY MOUTH EVERY DAY 84 tablet 1 02/13/20 25 Active Slynd 4 MG tablet TAKE 1 TABLET BY MOUTH EVERY DAY 84 tablet 1 09/09/19 25 025 Discontinued Active Problems Problem Noted Date Diagnosed Date Overweight (BMI 25.0-29.9) 12/09/2024 Amenorrhea due to oral contraceptive 12/09/2024 Asthma 04/28/2024 BPV (benign positional vertigo) 04/28/2024 Vitiligo 09/04/2023 Health care maintenance 04/25/2023 Cough 04/25/2023 Resolved Problems Problem Noted Date Diagnosed Date Resolved Date Constipation 04/28/2024 12/09/2024 Back pain 04/25/2023 08/03/2023 Encounters Date Type Department Care Team Description 02/12/2025 Telephone [facility] [address] [place] [phone] Leah eDe MD Med Refill 02/11/2025 Refill [facility] [address] [place] [address] Leah Dee MD 12/09/2024 11:15 AM EDT Office Visit [facility] [address] [place] [phone] Leah Dee MD Health care maintenance (Primary Dx); Dietary counseling; Exercise counseling; Mild intermittent asthma, unspecified whether complicated; Encounter for immunization; Amenorrhea; Chronic cough; Overweight (BMI 25.0-29.9); Amenorrhea due to oral contraceptive 12/09/2024 Travel 12/08/2024 Telephone [facility] [address] [place] [address] Leah Dee MD Appointment Confirmation 12/08/2024 Telephone [facility] [address] [place] [address] Leah Dee MD Appointment Request from Last 3 Months Immunizations Immunization Administration Dates Next Due DTaP 10/14/2006, 4,01/14/2003,11/27,2002 HPV, Quadrivalent 10/25/2014,02/09/2014,12/08/19 14 Hep A, ped/adol, 2 dose 12/08/2014,12/07/2013 Hep B, Adolescent or Pediatric 04/23/2003,2002,2002 Hep B, adult 12/09/2024,09/04/2023,08/02/2023 Hib ([facility]) 11/03/2003, 3,2002,09/11 IPV 10/14/2006, 3,2002,09/11 Influenza injectable quadriv alent preservative free 04/24/2023,08/26/2020,04/16/2020,08/05,07/23/2018,04/24/2017,05/11/2016 ,07/05/2015 Influenza, IIV3, injectable 04/16/2020, 9 Influenza, seasonal, injecta ble, preservative free 04/28/2024 MMR 09/01/2003 MMRV 10/14/2006 Meningococcal MCV4P ACYW-135 07/23/2018,12/08/19 14 Pfizer Covid-19 Vaccine 12+ 04/28/2024,,01/05/2021 Pneumococcal Conjugate PCV 7 07/15/2004, 01/14/2003,2002,09/11 Tdap 11/09/2020,12/07/2013 Varicella 09/01/2003 Social History Tobacco Use Types Packs/Day Years Used Date Smoking Tobacco: Never Smokeless Tobacco: Never Tobacco Cessation:Counseling Given: Not Answered Alcohol Use Standard Drinks/Week Comments Never 0 [...] Orientation Straight 04/09/2022 10 :17 AM EDT Last Filed Vital Signs Vital Sign Reading Time Taken Comments Blood Pressure 112/70 12/09/2024 11:16 AM EDT Pulse 88 12/09/2024 11:16 AM EDT Temperature 36.3 C (97.3 F) 12/09/2024 11:16 AM EDT Respiratory Rate 20 12/09/2024 11:16 AM EDT Oxygen Saturation 98% 04/28/2024 2:30 PM EST Inhaled Oxygen Concentration - - Weight 64.5 kg (142 lb 3.2 oz) 12/09/2024 11:16 AM EDT Height 154.9 cm (5' 1 ) 12/09/2024 11:16 AM EDT Body Mass Index 26.87 12/09/2024 11:16 AM EDT Plan of Treatment Health Maintenance Due Date Last Done Comments Disability Screening 2002 Family Planning (PISQ) 2017 Meningococcal B Vaccine (1 of 2 - Standard) 2018 Pneumococcal Vaccine: Pediatrics (0 to 5 Years) and At-Risk Patients (6 to 49) Years (1 of 2 - PCV) 2021 07/15/2004, 01/14/2003, 2002, Additional history exists SDOH Screening 07/24/2024 07/24/2023 Depression Screening 08/02/2024 08/02/2023, 08/02/19 24 Influenza Vaccine (#1) 2025 , 04/24/2023, 08/26/2020, Additional history exists Alcohol/Substance Use Screening 04/28/2025 04/28/2024 Chlamydia and Gonorrhea Screening 04/28/2025 04/28/2024, 04/24/2023 Tobacco Screening 04/28/2025 04/28/2024 Pap Smear 09/03/2026 09/04/2023 DTaP/Tdap/Td Vaccines (8 - Td or Tdap) 11/09/2030 11/09/2020, 12/07/2013, 10/14/2006, Additional history exists Zoster Vaccines (1 of 2) 2052 RSV Patients and Patients Aged 60 years or older (1 - 1-dose 75+ series) 2077 HIB Vaccines Completed 11/03/2003, 12/2002, 2002, Additional history exists IPV Vaccines Completed 10/14/2006, 04/10, 2002, Additional history exists HPV Vaccines Completed 10/25/2014, 07/2013, 12/07/2013 Hepatitis A Vaccines Completed 12/08/2014, 12/08/19 14 Meningococcal Vaccine Completed 07/23/2018, 014 COVID-19 Vaccine Completed 04/28/2024, , 01/05/2021 HIV Screening Completed 04/28/2024, 04/24/2023 Hepatitis C Screening Completed 04/28/2024, 023 Hepatitis B Vaccines Completed 12/09/2024, 09/04/2023, 08/02/2023, Additional history exists RSV under 20 months Aged Out No longe r eligible based on patient's age to complete this topic Rotavirus Vaccines Aged Out No longer eligible based on patient's age to complete this topic Procedures Procedure Name Priority Date/Time Associated Diagnosis Comments POCT , URINE Routine 12/09/2024 11:59 AM EDT Amenorrhea HEPATITIS C AB W/REFL TO HCV RNA, QN, PCR Routine 04/28/2024 3:28 PM EST Annual physical exam HIV 1/2 ANTIGEN/ANTIBODY, FOURTH GENERATION W/RFL Routine 04/28/2024 3:28 PM EST Annual physical exam CHLAMYDIA/N. GONORRHOEAE RNA, TMA, UROGENITAL Routine 04/28/2024 3:00 PM EST Annual physical exam PAP SMEAR Routine 09/04/2023 11:28 AM EDT Cervical cancer screening from Last 3 Months or Most Recently Relevant to Health Maintenance Results * POCT Urine (12/09/2024 11:59 AM EDT) Preg Test, Ur Negative Negative, Indeterminate, None Detected, Invalid, Specimen unsatisfactory for evaluation, Weakly Positive, 2+ QC Media Lot # [id number] Lot# Expiration Date [id number] Urine 12/09/2024 11:5 9 AM EDT Leah Gruber MD POINT OF CARE CAROL T ENTER/EDIT ORDERABLES Final Result * Hepatitis C Antibody with Reflex to HCV, RNA, Quantitative, Real-Time PCR (04/28/2024 3:28 PM EST) Pathologist [facility] [place] Hepatitis C Antibody Nonreactive Nonreactive [facility] Comment:Antibodies to HCV no t detected; does not exclude early acuteHCV infection. Blood Venous blood specimen / Unknown 04/28/2024 3:28 PM EST 04/28/2024 4:07 PM EST Leah Gruber MD LAB BLOOD ORDERAB LES Final Result Performing Organization Address [facility]/ZIP Co de Phone Number [facility] [address] [place] [phone] * HIV-1/2 Antigen and Antibodies, Fourth Generation, with Reflexes (04/28/2024 3:28 PM EST) Pathologist [facility] [place] HIV AB/AG Nonreactive Nonreactive [facility] Comment:HIV-1 p24 Ag and/or HIV-1/HIV-2 Ab not detected.A test result that is nonreactive does not exclude thepossibility of exposure to or infection with HIV-1 and/orHIV-2. Nonreactive results in this assay for individualswith prior exposure to HIV-1 and/or HIV-2 may be due toantigen and antibody levels that are below the limit ofdetection of this assay.The [employer] HIV Ag/Ab Combo assay result andsupplemental assay results should be interpreted inconjunction with the patient's clinical presentation,history and other laboratory results. If the results areinconsistent with clinical evidence, additional testing issuggested to confirm the result. Blood Venous blood specimen / Unknown 04/28/2024 3:28 PM EST 04/28/2024 4:07 PM EST Leah Gruber MD LAB BLOOD ORDERAB LES Final Result Performing Organization Address City/[facility]/ZIP Co de Phone Number [facility] [address] [place] [address] [phone] * Chlamydia/N. Gonorrhoeae RNA, TMA, Urogenitial (04/28/2024 3:00 PM EST) CT PCR NOT DETECTED Not Detect. [facility] Comment:A not detected test result does not exclude the possibilityof infection because test results can be affected byimproper specimen collection, concurrent antibiotic therapy,or the number of organisms in the specimen which may bebelow the sensitivity of the test. As with many diagnostictests, results from the Xpert CT/NG assay should beinterpreted in conjunction with other laboratory andclinical data available to the clinician.Xpert CT/NG performance has not been evaluated in patientsless than 14 years of age. The assay should not be used forthe evaluationof suspected sexual abuse or for other medico-legalindications. Additional testing is recommended in anycircumstance when false positive or false negative resultscould lead to adverse medical, social or psychologicalconsequences. NG PCR NOT DETECTED Not Detect. [facility] Comment:A not detected test result does not exclude the possibilityof infection because test results can be affected byimproper specimen collection, concurrent antibiotic therapy,or the number of organisms in the specimen which may bebelow the sensitivity of the test. As with many diagnostictests, results from the Xpert CT/NG assay should beinterpreted in conjunction with other laboratory andclinical data available to the clinician.Xpert CT/NG performance has not been evaluated in patientsless than 14 years of age. The assay should not be used forthe evaluationof suspected sexual abuse or for other medico-legalindications. Additional testing is recommended in anycircumstance when false positive or false negative resultscould lead to adverse medical, social or psychologicalconsequences. Urine Urethral structure / Unknown 04/28/2024 3:00 PM EST 04/28/2024 4:36 PM EST Narrative [facility] - 04/29/2024 5:34 AM EST Vaginal us Leah Gruber MD LAB MICROBIOLOGY - GENERAL ORDERABLES Final Result [facility] [address] [place] [address] [phone] * Pap Smear (09/04/2023 11:28 AM EDT) Swab Cervix uteri structure / Unknown 09/04/2023 11:28 AM EDT 09/06/2023 9:30 AM EDT Rafa [facility] - 09/15/2023 5:56 PM EDT ----- ------- Name: Maddy Villalobos Age/Sex: 23/F : 2000 Unit#: [id number] Attend Dr: Kelsey Noble NP Re09/04/23 Status: [facility] REF Location: [facility] Disch: ----- ------- SPEC : [id number] RECD: 09/06/23 STATUS: BERTIN ETIENNE NUM: [id number] AMANDA: 09/04/23-1127 [facility] DR: MAI FLORES ENTERED: 09/06/23-7 SP TYPE: Pap Smr OT DR: ORDERED: Pap Smear Interpretation Satisfactory for evaluation. Negative for intraepithelial lesion or malignancy. Clinical Information LMP: Contraceptive patch Previous PAP test: Initial pap Material Received ThinPrep-Vaginal/Cervical ----- ------- Signed (signature on file) Brenda Davis 09/15/23 1756 ----- ------- END OF REPORT Mai Flores [facility] CYTOLOGY ORDERABLES F inal Result [facility] [address] [place] [phone] from Last 3 Months or Most Recently Relevant to Health Maintenance [place] [place] [address] C3 Care Teams Power Equipment Mechanics Instructor Relationship Specialty Start Date End Date Leah Dee MD [address] [place] [phone] PCP - General Internal Medicine 02/19/23
--- OUTSIDE RECORDS SUMMARY | 2025-02-17 18:23 | XMS_ITS | Encounter Summary ---
Author Organization [employer] Address [address] [place] [address] 7 [place] [address] Care Team Providers Care Plant Maintenance Worker Name Role Phone Leah Dee MD Primary Care Pro vider Reason for Visit * Reason Onset Date Comments Nurse Triage 02/26/2023 Encounter Details Date Type Department Care Team (Late st Contact Info) Description 02/26/2023 Telephone [facility] [address] [place], [place] [phone] Leah Dee MD [address] [place], [place] [phone] Nurse Triage Social History Tobacco Use Types Packs/Day Years Used Date Smoking Tobacco: Never Assessed Comments Unknown Sex and Gender Information Value Date Recorded Sex Assigned at Female 04/09/2022 10:17 AM EDT Legal Sex Female 10:17 AM EDT Gender Identity Female 04/09/2022 10:17 AM EDT Sexual Orientation Straight 04/09/2022 10 :17 AM EDT documented as of this encounter Miscellaneous Notes * Telephone Encounter - Abby Linder RN - 02/26/2023 3:11 PM EDT Triage call Pt reports a cough for last 2 months which hasn't gone away. Started with some nasal congestion, runny nose and remained when that resolved. Pt denies fever and production to cough. No difficulty breathing hasn't lost work/school time. Pt is going about normal activities. Home care reviewed with Pt especially increasing liquids to 64oz per day, warm liquids preferred, 2 tsp honey at bed time, cough drops , warm mist from humidifier or hot shower steam. Pt will try these suggestions and if no change in a week or so will call back. Protocol Used: Cough (Adult) Protocol-Based Disposition: Home Care Positive Triage Question: * Cough with no complications * All higher-acuity triage questions were negative Care Advice Discussed: * Reassurance and Education - Cough * Cough Medicines * Coughing Spells * Prevent Dehydration * Humidifier * Reasons To Call Back - Difficulty breathing - Cough lasts more than 3 weeks - Fever lasts more than 3 days - You become worse * Telephone Encounter - Flakita Hernadez - 02/26/2023 2:52 PM EDT Symptom: Cough x 3 months Outcome: Schedule an appointment to be seen within 24 hours Reason: Caller denied all higher acuity questions The caller accepted this outcome documented in this encounter Plan of Treatment Not on file documented as of this encounter Visit Diagnoses Not on filedocumented in this encounter Care Teams Plant Maintenance Worker Relationship Specialty Start Date End Date Leah Dee MD [address] [place] [phone] PCP - General Internal Medicine 02/19/23 documented as of this encounter
--- OUTSIDE RECORDS SUMMARY | 2025-02-17 18:23 | XMS_ITS | Clinical Summary ---
Author Organization [facility] ity Address [address] [place] [address] Care Team Providers Care Marketing Campaign Analyst Name Role Phone Unavailable Primary Care Provider Unavailabl e Social History Tobacco Use Types Packs/Day Years Used Date Smoking Tobacco: Never Assessed Comments Unknown Sex and Gender Information Value Date Recorded Sex Assigned at Not on file Legal Sex Female 1:51 PM EST Gender Identity Not on file Sexual Orientation Not on file Plan of Treatment Health Maintenance Due Date Last Done Comments Gonorrhea/Chlamydia Screening 2002 HPV Vaccines (1 - 3-dose series) 2017 Meningococcal B Vaccine (1 o f 2 - Standard) 2018 DTaP,Tdap,and Td Vaccines (1 - Tdap) 2021 Hepatitis B Vaccines (1 of 3 - 19+ 3-dose series) 2021 Cervical Cancer Screening: P ap Smear 2023 HIV Screening 12/31/2023 Hepatitis C Screening 12/31/2023 Social Influencers of Health Screening 12/31/2023 COVID-19 Vaccine (1 - 2023-2 5 season) 2024 Depression Screening 06/10/2024 Influenza Vaccine (#1) 2025 HIB Vaccines Aged Out No longer eligi ble based on patient's age to complete this topic Hepatitis A Vaccines Aged Out No long er eligible based on patient's age to complete this topic IPV Vaccines Aged Out No longer eligi ble based on patient's age to complete this topic MMR Vaccines Aged Out No longer eligi ble based on patient's age to complete this topic Meningococcal ACWY Vaccine Aged Out N o longer eligible based on patient's age to complete this topic Pneumococcal Vaccine: Pediat rics (0 to 5 Years) and At-Risk Patients (6 to 49 Years) Aged Out No longer eligible b ased on patient's age to complete this topic RSV Immunization Patients Un jose l 20 months Aged Out No longer eligible b ased on patient's age to complete this topic Varicella Vaccines Aged Out No longer eligible based on patient's age to complete this topic
--- OUTSIDE RECORDS SUMMARY | 2025-02-17 18:23 | XMS_ITS | Encounter Summary ---
Author Organization [employer] Address [address] [place] [address] 7 [place] [address] Care Team Providers Care Stringer Machine Tender Name Role Phone Leah Dee MD Primary Care Pro vider Reason for Visit * Reason Comments Med Refill Encounter Details Date Type Department Care Team ([facility] st Contact Info) Description 02/11/2025 Refill [facility] MEDICINE [address] [place], [place] [phone] Leah Dee MD [address] [place] [address] Social History Tobacco Use Types Packs/Day Years [...] AM EDT documented as of this encounter Plan of Treatment Not on file documented as of this encounter Visit Diagnoses Not on filedocumented in this encounter Additional Health Concerns Assessment Noted Time PHQ-9 Depression Total Score: 3 08/02/19 24 3:41 PM EST documented as of this encounter Care Teams Stringer Machine Tender Relationship Specialty Start Date End Date Leah Dee MD [address] [place] [phone] PCP - General Internal Medicine 02/19/23 documented as of this encounter
--- OUTSIDE RECORDS SUMMARY | 2025-02-17 18:23 | XMS_ITS | Encounter Summary ---
Author Organization [employer] Address [address] [place] [address] [place] [address] Care Team Providers Care Pad Machine Operator Name Role Phone Leah Dee MD Primary Care Pro vider Reason for Visit * Reason Onset Date Comments Appointment Request 12/08/2024 Encounter Details Date Type Department Care Team ([facility] st Contact Info) Description 12/08/2024 Telephone [facility] MEDICINE [address] [place], [place] [phone] Leah Dee MD [address] [place], [place] [phone] Appointment Request Social History Tobacco Use Types Packs/Day Years [...] encounter Miscellaneous Notes * Telephone Encounter - Abel Meng - 12/08/2024 9:09 AM EDT -Tc from pt requesting a f/u apt to discuss not getting period since October . Pt thinks it is side effects of control. Contract Technical Writer could not find a sooner apt. Contact pt at [phone] documented in this encounter Plan of Treatment Not on file documented as of this encounter Visit Diagnoses Not on filedocumented in this encounter Additional Health Concerns Assessment Noted Time PHQ-9 Depression Total Score: 3 08/02/19 24 3:41 PM EST documented as of this encounter Care Teams Pad Machine Operator Relationship Specialty Start Date End Date Leah Dee MD [address] [place] [phone] PCP - General Internal Medicine 02/19/23 documented as of this encounter
== END 2025-02-17 16:07 | disposition home or self-care (01) ==
LOC: HO.HPSW 15:27
PROVIDERS: PCP Student in an Organized Health Care Education/Training Program; Visit Provider Nurse Practitioner Family
DX: J45.909 Unspecified asthma, uncomplicated (principal); Z91.09 Other allergy status, other than to drugs and biological substances
CPT/HCPCS: 99214

== ENCOUNTER → 2025-02-17 15:26 | Outpatient (BNVA) | payer MEDICAID, SELFPAY | PROVIDERS: PCP Student in an Organized Health Care Education/Training Program; Visit Provider Nurse Practitioner Family | DX: Z91.09 Other allergy status, other than to drugs and biological substances (principal); J45.909 Unspecified asthma, uncomplicated; R05.3 Chronic cough; Z79.899 Other long term (current) drug therapy | CPT/HCPCS: 99212 ==

== ENCOUNTER 2025-03-13 07:50 | Outpatient (REF) | payer MEDICAID, SELFPAY ==
--- NOTE | ~2025-03-13 | XR_ITS ---
CLINICAL HISTORY: R05.9 - Cough, unspecified 2 view chest Comparison: CT/SR - CT CHEST WITH IV CONTRAST - 06/11/23 15:56 EST CR/SR - XR CHEST 2 VIEWS - 04/24/23 12:38 EST Findings: No consolidation or pneumothorax/pleural effusion. Mild peribronchial wall thickening. Cardiomediastinal silhouette is normal. No mediastinal shift or tracheal deviation. Osseous structures intact. Impression: 1. Mild central bronchial wall thickening. 2. No airspace disease. This document has been electronically signed by: Holland Dailey MD on 03/15/2025 12:59:56
--- OUTSIDE RECORDS SUMMARY | 2025-03-13 07:53 | XMS_ITS | Clinical Summary ---
Author Organization [facility] ity Address [address] [place] [address] Care Team Providers Care Foreign Food Specialty Cook Name Role Phone Unavailable Primary Care Provider [...] 12/31/2023 Social Influencers of Health Screening 12/31/2023 Depression Screening 06/10/2024 COVID-19 Vaccine (1 - 2023-2 5 season) 2025 Influenza Vaccine (#1) 2025 RSV Immunization Adult Patie nts (1 - 1-dose 75+ series) 2077 HIB Vaccines Aged Out No longer eligi [...]
--- OUTSIDE RECORDS SUMMARY | 2025-03-13 07:53 | XMS_ITS | Encounter Summary ---
Author Organization [employer] Address [address] [place] [address] 7 [place] [address] Care Team Providers Care Printing Supplies Sales Representative Name Role Phone Leah Dee MD Primary Care Pro vider Reason for Visit * Reason Onset Date Comments Nurse Triage 02/26/2023 Encounter Details Date Type Department Care Team (Late st Contact Info) Description 02/26/2023 Telephone [facility] MEDICINE [address] [place], [place] [phone] Leah Dee MD [address] [place], [place] [phone] Nurse Triage Social History Tobacco Use Types [...] on filedocumented in this encounter Care Teams Printing Supplies Sales Representative Relationship Specialty Start Date End Date Leah Dee MD [address] [place] [phone] PCP - General Internal Medicine 02/19/23 documented as of this encounter
--- OUTSIDE RECORDS SUMMARY | 2025-03-13 07:53 | XMS_ITS | Encounter Summary ---
Author Organization [employer] Address [address] [place] [address] Care Team Providers Care Cascara Bark Cutter Name Role Phone Leha Dee MD Primary Care Pro vider Reason for Visit * Reason Onset Date Comments Med Refill 02/12/2025 Encounter Details Date Type Department Care Team (Late st Contact Info) Description 02/12/2025 Telephone [facility] MEDICINE [address] [place], [place] [phone] Leah Dee MD [address] [place], [place] [phone] Med Refill Social History Tobacco Use Types [...] 4 MG tablet To be sent to: [facility]/pharmacy [address] [place] [phone] [place] [address] documented in this encounter Plan of Treatment Not on file documented as of this encounter Visit Diagnoses Not on filedocumented in this encounter Additional Health Concerns Assessment Noted Time PHQ-9 Depression Total Score: 3 08/02/19 24 3:41 PM EST documented as of this encounter Care Teams Cascara Bark Cutter Relationship Specialty Start Date End Date Leah Dee MD [address] [place] [phone] PCP - General Internal Medicine 02/19/23 documented as of this encounter
--- OUTSIDE RECORDS SUMMARY | 2025-03-13 07:53 | XMS_ITS | Clinical Summary ---
Author Organization [employer] Address [address] [place] [address] 7 [place] [address] Care Team Providers Care Android Framework Developer Name Role Phone Leah Dee MD Primary [...] Encounters Date Type Department Care Team Description 03/03/2025 Telephone [facility] MEDICINE [address] [place] [address] Leah Dee MD Referral 02/12/2025 Telephone [facility] MEDICINE [address] [place] [address] Leah Dee MD Med Refill 02/11/2025 Refill [facility] MEDICINE [address] [place] [address] Leah Dee MD from Last 3 Months Immunizations Immunization Administration Dates Next Due DTaP 10/14/2006, 4,01/14/2003,11/27,2002 HPV, Quadrivalent 10/25/2014,02/09/2014,12/08/19 14 Hep A, ped/adol, 2 dose 12/08/2014,12/07/2013 Hep B, Adolescent or Pediatric 04/23/2003,2002,2002 Hep B, adult 12/09/2024,09/04/2023,08/02/2023 Hib (HbOC) 11/03/2003, 3,2002,09/11 IPV 10/14/2006, 3,2002,09/11 Influenza injectable [...] Procedure Name Priority Date/Time Associated Diagnosis Comments HEPATITIS C AB W/REFL TO HCV RNA, [...] Recently Relevant to Health Maintenance Results * Hepatitis C Antibody with Reflex to HCV, RNA, Quantitative, Real-Time PCR (04/28/2024 3:28 PM EST) Hepatitis C Antibody Nonreactive Nonreactive [facility] Comment:Antibodies to HCV no t detected; does not exclude early acuteHCV infection. Blood Venous blood specimen / Unknown 04/28/2024 3:28 PM EST 04/28/2024 4:07 PM EST us Leah Gruber MD LAB BLOOD ORDERAB LES Final Result [facility] [address] [place] [phone] * HIV-1/2 Antigen and Antibodies, Fourth Generation, with Reflexes (04/28/2024 3:28 PM EST) HIV AB/AG Nonreactive Nonreactive [facility] Comment:HIV-1 p24 Ag and/or HIV-1/HIV-2 Ab not detected.A test result that is nonreactive does not exclude thepossibility of exposure to or infection with HIV-1 and/orHIV-2. Nonreactive results in this assay for individualswith prior exposure to HIV-1 and/or HIV-2 may be due toantigen and antibody levels that are below the limit ofdetection of this assay.The [email or web address] HIV Ag/Ab Combo assay result andsupplemental assay results should be interpreted inconjunction with the patient's clinical presentation,history and other laboratory results. If the results areinconsistent with clinical evidence, additional testing issuggested to confirm the result. Blood Venous blood specimen / Unknown 04/28/2024 3:28 PM EST 04/28/2024 4:07 PM EST us Leah Gruber MD LAB BLOOD ORDERAB LES Final Result [facility] [address] [place] [phone] * Chlamydia/N. Gonorrhoeae RNA, TMA, Urogenitial (04/28/2024 3:00 PM EST) CT PCR NOT DETECTED Not Detect. [facility] Comment:A not detected test result does [...] psychologicalconsequences. NG PCR NOT DETECTED Not Detect. [facility] Comment:A not detected test result does [...] 3:00 PM EST 04/28/2024 4:36 PM EST [facility] - 04/29/2024 5:34 AM EST Vaginal Leah Gruber MD LAB MICROBIOLOGY - GENERAL ORDERABLES Final Result [facility] [address] [place] [phone] * Pap Smear (09/04/2023 11:28 AM EDT) Swab Cervix uteri structure / Unknown 09/04/2023 11:28 AM EDT 09/06/2023 9:30 AM EDT [facility] - 09/15/2023 5:56 PM EDT ----- ------- Name: WilfredoOmayrely Age/Sex: 23/F : 2000 Unit#: [id number] Attend Dr: Kelsey Noble NP Re09/04/23 Status: DEP REF Location: [facility] Disch: ----- ------- SPEC : [id number] RECD: 09/06/23 STATUS: BERTIN ETIENNE NUM: [id number] AMANDA: 09/04/23-[address] [facility] [address]: MIMI FLORES CNM ENTERED: 09/06/23 SP TYPE: Pap Smr OT DR: ORDERED: Pap Smear Interpretation Satisfactory for evaluation. Negative for intraepithelial lesion or malignancy. Clinical Information LMP: Contraceptive patch Previous PAP test: Initial pap Material Received ThinPrep-Vaginal/Cervical ----- ------- Signed (signature on file) Brenda Esteban Ryan 09/15/23 1756 ----- ------- END OF REPORT Mimi Flores CNM LAB CYTOLOGY ORDERABLES F inal Result [facility] [address] [place] [phone] from Last 3 Months or Most Recently Relevant to Health Maintenance [place] [address] [place] [address] C3 Care Teams Android Framework Developer Relationship Specialty Start Date End Date Leah Dee MD [address] [place] [phone] PCP - General Internal Medicine 02/19/23
[2025-03-13 08:05] LABS: MANUAL DIFF FLAG NO
[2025-03-13 08:13] LABS: Hematocrit 40.8 % (37.0-47.0); Hemoglobin 13.6 g/dl (12.0-16.0); Imm Gran Abs Auto 0.03 X10*3/uL (0.00-0.03); Imm Gran Pct Auto 0.4 % (0.0-0.4); Lymphocytes Absolute Auto 1.9 X10*3/uL (1.2-4.9); Mean Corpuscular HGB Conc 33.3 g/dl (31.0-35.0); Mean Corpuscular Hemoglobin 28.6 pg (27.0-33.0); Mean Corpuscular Volume 85.9 fL (80.0-98.0); NRBC Abs Auto 0.000 X10*3/uL (0.0-0.012); NRBC Pct Auto 0.0 /100WBC (0.0-0.2); Platelet Count 306 X10*3/uL (160-400); Red Blood Count 4.75 X10*6/uL (4.20-5.50); White Blood Count 8.0 X10*3/uL (4.8-10.8)
[2025-03-23 15:19] LABS: Anti Nuclear Antibody Pattern Nuclear, Speckled; Anti Nuclear Antibody Screen POSITIVE (NEGATIVE); Anti Nuclear Antibody Titer 1:80 titer
[2025-03-25 02:43] LABS: Class Alternaria alternata 0; Class Aspergillus fumigatus 0; Class Bermuda Grass 2; Class Birch 5; Class Cat Dander 6; Class Cladosporium herbarum 0; Class Cockroach 2; Class Common Ragweed 6; Class Cottonwood 2; Class Derm. pterony 1; Class Dermatophagoides farinae 1; Class Dog Dander 4; Class Elm 2; Class Maple Box Elder 2; Class Mountain Cedar 2; Class Mouse Urine Protein 0; Class Mugwort 2; Class Oak 4; Class Penicillium crysogenum 0/1; Class Rough Pigweed 2; Class Sheep Sorrel 2; Class Sycamore 2; Class Timothy Grass 2; Class Walnut Tree 2; Class White Ash 2; Class White Mulberry 2; D002 - IgE D farinae 0.51 kU/L; E001 - IgE Cat Dander >100 kU/L; E005 - IgE Dog Dander 18.10 kU/L; G006 - IgE Timothy Grass 3.12 kU/L; I006-IgE Cockroach, German 0.77 kU/L; M002 - IgE Cladosporium herbar <0.10 kU/L; M003 - IgE Aspergillus fumigat <0.10 kU/L; M006 - IgE Alternaria alternat <0.10 kU/L; T001 IgE Maple/Box Elder 1.50 kU/L; T006 - IgE Cedar, Mountain 1.66 kU/L; T007 - IgE Oak, White 26.50 kU/L; T008 IgE Elm, American 2.39 kU/L; T010 - IgE Walnut 1.86 kU/L; T011 - IgE Maple Leaf Sycamore 1.52 kU/L; T014 - IgE Cottonwood 1.40 kU/L; T015 - IgE Ash, White 1.70 kU/L; T070 - IgE White Mulberry 0.84 kU/L; W001 - IgE Ragweed, Short >100 kU/L; W006 - IgE Mugwort 1.58 kU/L; W014 IgE Pigweed, Common 0.97 kU/L; W018 IgE Sheep Sorrel 1.23 kU/L
== END 2025-03-13 07:51 | disposition home or self-care (01) ==
LOC: HO.XRAY 07:50
PROVIDERS: PCP Student in an Organized Health Care Education/Training Program; Visit Provider Nurse Practitioner Family
DX: Z01.84 Encounter for antibody response examination (principal); R05.9 Cough, unspecified; Z91.09 Other allergy status, other than to drugs and biological substances
CPT/HCPCS: 36415; 71046; 82785; 85025; 86003; 86038; 86039

== ENCOUNTER → 2025-03-13 08:06 | Outpatient (BNV) | payer MEDICAID, SELFPAY | PROVIDERS: PCP Student in an Organized Health Care Education/Training Program; Visit Provider Radiology Diagnostic Radiology | DX: R05.9 Cough, unspecified (principal); J98.09 Other diseases of bronchus, not elsewhere classified | CPT/HCPCS: 71046 ==

== ENCOUNTER 2025-03-31 14:43 | Outpatient (AMB) | payer MEDICAID, SELFPAY ==
[2025-03-31 15:08] VITALS: BP 104/68; PULSE 84; O2SAT 98; BMI 27.0
--- NOTE | 2025-03-31 15:08 | A.OFFVIS_ITS ---
Vital Signs 03/31/25 15:08 Height 5 ft 1 in Weight 143 lb 2 oz BMI 27.0 BP 104/68 Blood Pressure Location Rt brachial Position Sitting Pulse 84 Pulse Source Pulse Oximeter Pulse Oximetry (%) 98 Oxygen Delivery Method Room Air Intake Visit Reasons: cough Allergies No Known Allergies Allergy (Unverified 03/31/25 15:09) HPI HPI cough: Details: Maddy is a pleasant 24-year-old female, never smoker, with underlying asthma.. Prior PFT and labs suggestive of allergic asthma with IgE 901 and el evated eosinophils. She had previously trialed Singulair, Flovent as well as Advair with no significant change in symptoms however unclear how long patient trialed medications. She was also placed on prednisone but does not recall it providing significant relief. She uses PRN antihistamine mostly in the Spring. Prior CXR [address] 06/2024 unremarkable. At the last visit she was started on Breo and denies any change with cough. She also notes on a few occasions inhaling the dry powder resulted in wheezing. She continues to report dry cough with no significant triggers. She denies dyspnea or chest tightness. Today she presents to review RAST as well as chest x-ray. [facility] Social History Patient Tobacco Use Status: Never used Tobacco Review of Systems Const Denies chills, Denies excessive sweating, Denies fever(s), Denies headache(s) and Denies night sweats Eyes Denies dry eyes, Denies irritation and Denies itchy eyes ENT Reports Normal hearing present, Denies headache(s), Denies nasal congestion, Denies nasal discharge, Denies post nasal drip and Denies sore throat Card Denies chest pain, Denies chest pain at rest, Denies chest pain with activity, Denies claudication, Denies leg edema, Denies dyspnea, Denies dyspnea on exertion, Denies orthopnea and Denies paroxysmal nocturnal dyspnea Resp Denies chest congestion, Reports cough, Denies excessive phlegm production, Denies pain on inspiration, Denies pain with cough, Denies dyspnea, Denies dyspnea on exertion, Denies stridor and Denies wheezing Musc Denies myalgias Neuro Reports Normal hearing present and Denies headache(s) Endo Denies excessive sweating Brain/Lymph Denies lymphadenopathy Aller/Immun Denies itchy eyes, Denies seasonal rhinorrhea and Denies wheezing Physical Exam Vital Signs: Last Vital Signs Pulse 84 03/31/25 15:08 BP 104/68 03/31/25 15:08 Pulse Ox 98 03/31/25 15:08 Oxygen Delivery Method Room Air 03/31/25 15:08 BMI result Body Mass Index 27.0 Const General: cooperative, healthy appearing, comfortable, no acute distress, well developed and alert Orientation/consciousness: patient oriented x3 Limitations: no limitations HEENT Head: Yes normal to inspection, Yes normocephalic and Yes atraumatic Ears: hearing grossly normal bilaterally and external ears normal Eyes General: appearance normal, both eyes and all related structures Eyelids: Yes eyelids normal Sclerae: sclerae normal EOM: EOMs intact bilaterally Neck Neck: Yes normal visual inspection and Yes no lymphadenopathy Lymphatic: no lymphadenopathy noted Chest Chest palpation & inspection: normal inspection of the chest Resp Effort & Inspection: normal respiratory effort, able to speak in complete sentences, no audible wheezes, no cough, no stridor, not tachypneic, no tripod positioning and no use of accessory muscles Auscultation: clear to auscultation bilaterally Cardio Jugular venous distension: no JVD Rate: regular rate Rhythm: regular rhythm Skin Other: warm, dry General skin exam: no rashes or lesions noted Neuro General: patient oriented x3 Cranial nerves: Yes Normal hearing present Cognition (Neuro): normal cognition Gait exam (Neuro): Normal gait present Extrem General: Yes normal to inspection, Yes capillary refill normal, Yes no clubbing, cyanosis or edema and Yes no pedal edema Psych Appearance: grossly normal and well kempt Speech and movement: Normal speech and movement present and Clear speech present Affect: normal affect Attitude: cooperative Thought process: Normal thought process present Thought content: Normal thought content present Insight: Good insight present (Psych) Judgement: Good judgement present (Psych) Results Reviewed Results Reviewed: [address] [address] XRay Report Signed Patient: Ivania Villalobosrely MR#: [id number] : 2000 Acct:[id number] Age/Sex: 24 / F ADM Date: 03/13/25 Loc: [facility] Attending Dr: Kelsey Noble COCOA BEAN CLEANER Ordering Physician: Kelsey Noble NP Date of Service: 03/13/25 Procedure(s): XR chest 2V Accession Number(s): [id number] cc: Leah Dee MD; Kelsey Noble COCOA BEAN CLEANER~ Reason for Exam: R05.9 - Cough, unspecified CLINICAL HISTORY: R05.9 - Cough, unspecified 2 view chest Comparison: CT/SR - CT CHEST WITH IV CONTRAST - 06/11/23 15:56 EST CR/SR - XR CHEST 2 VIEWS - 04/24/23 12:38 EST Findings: No consolidation or pneumothorax/pleural effusion. Mild peribronchial wall thickening. Cardiomediastinal silhouette is normal. No mediastinal shift or tracheal deviation. Osseous structures intact. Impression: 1. Mild central bronchial wall thickening. 2. No airspace disease. This document has been electronically signed by: Holland Dailey MD on 03/15/2025 12:59:56 Dictated By: Holland Dailey MD Signed By: <Electronically signed by Holland Dailey MD in OV> 03/15/25 1301 DD/ 1259 TD/TT: 03/15/25 1259 Architectural Drafter: Assessment & Plan Assessment & Plan (1) Asthma: Code(s): J45.909 - Unspecified asthma, uncomplicated Category: Medical (2) Environmental allergies: Code(s): Z91.09 - Other allergy status, other than to drugs and biological substances Category: Medical Plan Reviewed RAST which revealed significant allergies and IgE >1000. Discussed ways to minimize exposures and encouraged daily use of an antihistamine. Patient unable to tolerate dry powder inhaler, previously had no effect with Advair, will trial Symbicort. Discussed importance of compliance with medications. Will also send albuterol MDI to use as needed. Will trial high dose ICS/LABA for a total of 3 months and if no improvement will consider biologic such as Xolair. She is aware to call if symptoms change. All questions were answered and patient is in agreement of plan. Will follow-up in 2 months or sooner if needed. Medications: New albuterol sulfate 90 mcg/actuation 2 puffs inhalation Q4-6H PRN 1 ea 3RF shortness of breath or wheezing budesonide-formoterol 160-4.5 mcg/actuation (Symbicort) 2 puffs inhalation Q12H 10.2 grams 3RF Discontinued fluticasone furoate-vilanterol 200-25 mcg/dose (Breo Ellipta) Discontinued Reason: Patient Completed Course 1 inh inhalation DAILY 60 ea 3RF Coding Level of Care Code Est Pt Level 4 (37384) Diagnoses Asthma J45.909 Environmental allergies Z91.09
--- OUTSIDE RECORDS SUMMARY | 2025-03-31 20:52 | XMS_ITS | Encounter Summary ---
Author Organization [employer] Address [address] [place] [address] [place] [address] Care Team Providers Care Play Back Operator Name Role Phone Leah Dee MD Primary Care Pro vider Reason for Visit * Reason Onset Date Comments jun recall 03/31/2025 Encounter Details Date Type Department Care Team ([facility] st Contact Info) Description 03/31/2025 Telephone [facility] MEDICINE [address] [place], [place] [phone] Leah Dee MD [address] [place] [address] jun recall Social History Tobacco Use Types Packs/Day Years [...] encounter Miscellaneous Notes * Telephone Encounter - Lidia Winter MA - 03/31/2025 3:40 PM EDT Recall letter sent. Visit type: Physical After this Date 04/28/25 Appointment notes: Physical Month due: June With: Devaughn Please schedule appointment above if patient returns call documented in this encounter Plan of Treatment Not on file documented as of this encounter Visit Diagnoses Not on filedocumented in this encounter Additional Health Concerns Assessment Noted Time PHQ-9 Depression Total Score: 3 08/02/19 24 3:41 PM EST documented as of this encounter Care Teams Play Back Operator Relationship Specialty Start Date End Date Leah Dee MD [address] [place] [phone] PCP - General Internal Medicine 02/19/23 documented as of this encounter
--- OUTSIDE RECORDS SUMMARY | 2025-03-31 20:52 | XMS_ITS | Encounter Summary ---
Author Organization [email or web address] Address [address] [place] [address] Care Team Providers Care Brokerage Branch Manager Name Role Phone Leah Dee MD Primary Care Pro vider Reason for Visit * Reason Onset Date Comments Med Refill 02/12/2025 Encounter Details Date Type Department Care Team (Late st Contact Info) Description 02/12/2025 Telephone [facility] MEDICINE [address] [place], [place] [phone] Leah Dee MD [address] [place], [place] [phone] Med Refill Social History Tobacco Use Types [...] 4 MG tablet To be sent to: [facility]/pharmacy [address] [place] [phone] [place] [address] documented in this encounter Plan of Treatment Not on file documented as of this encounter Visit Diagnoses Not on filedocumented in this encounter Additional Health Concerns Assessment Noted Time PHQ-9 Depression Total Score: 3 08/02/19 24 3:41 PM EST documented as of this encounter Care Teams Brokerage Branch Manager Relationship Specialty Start Date End Date Leah Dee MD [address] [place] [phone] PCP - General Internal Medicine 02/19/23 documented as of this encounter
--- OUTSIDE RECORDS SUMMARY | 2025-03-31 20:53 | XMS_ITS | Clinical Summary ---
Author Organization [facility] ity Address [address] [place] [address] Care Team Providers Care Local Company Tanker Driver Name Role Phone Unavailable Primary Care Provider [...]
--- OUTSIDE RECORDS SUMMARY | 2025-03-31 20:53 | XMS_ITS | Clinical Summary ---
Author Organization [employer] Address [address] [place] [address] 7 [place] [address] Care Team Providers Care Burnisher Name Role Phone Leah Dee MD Primary Care Pro vider Allergies No known active allergies Medications mometasone (Elocon) 0.1 % cream Apply 1 Application. topically in the morning. 2 Active Slynd 4 MG tablet TAKE 1 TABLET BY MOUTH EVERY DAY 84 tablet 1 5 Active Active Problems Problem Noted Date Diagnosed Date Overweight (BMI 25.0-29.9) 12/09/2024 Amenorrhea due to oral contraceptive 12/09/2024 Asthma 04/28/2024 BPV (benign positional vertigo) 04/28/2024 Vitiligo 09/04/2023 Health care maintenance 04/25/2023 Cough 04/25/2023 Resolved Problems Problem Noted Date Diagnosed Date Resolved Date Constipation 04/28/2024 12/09/2024 Back pain 04/25/2023 08/03/2023 Encounters Date Type Department Care Team Description 03/31/2025 Telephone [facility] [address] [place] [phone] Leah Dee MD steve recall 03/13/2025 Orders Only GENERIC EXTERNAL DATA DEPARTMENT Provider, Generic External Data 03/03/2025 Telephone [facility] [address] [place] [phone] Leah Dee MD Referral 02/12/[address] [address] Leah Dee MD Med Refill 02/11/2025 Refill [facility] [address] [place] [address] Leah Dee MD from Last 3 Months Immunizations Immunization Administration Dates Next Due DTaP 10/14/2006, 4,01/14/2003,11/27,2002 HPV, Quadrivalent 10/25/2014,02/09/2014,12/08/19 14 Hep A, ped/adol, 2 dose 12/08/2014,12/07/2013 Hep B, Adolescent or Pediatric 04/23/2003,2002,2002 Hep B, adult 12/09/2024,09/04/2023,08/02/2023 Hib ([facility]) 11/03/2003, 3,2002,09/11 IPV 10/14/2006, 3,2002,09/11 Influenza [...] Procedure Name Priority Date/Time Associated Diagnosis Comments XR CHEST 2 VIEWS Routine 03/15/2025 12:5 9 PM EDT RAST ALLERGEN (NON ORDERABLE) Routine 03/13/2025 8:03 AM EDT RESPIRATORY ALLERGY PROFILE REGION I Routine 03/13/2025 8:03 AM EDT IMMUNOGLOBULIN E Routine 03/13/2025 8:03 AM EDT KALEE SCREEN, IFA, W/REFL TITER AND PATTERN Routine 03/13/2025 8:03 AM EDT CBC WITH AUTO DIFFERENTIAL Routine 03/13/2025 8:03 AM EDT HEPATITIS C AB W/REFL TO HCV RNA, [...] Recently Relevant to Health Maintenance Results * XR Chest 2 Views (03/15/2025 12:59 PM EDT) Anatomical Region Laterality Modality Chest Radiographic Gloria ging 03/15/2025 12:5 9 PM EDT Narrative 03/15/2025 1:01 PM EDT [address] [address] XRay Report Signed Patient: Maddy Villalobos MR#: [id number] : 2000 Acct:[id number] Age/Sex: 24 / F ADM Date: 03/13/25 Loc: [facility] Attending Dr: Kelsey Noble NP Ordering Physician: Kelsey Noble NP Date of Service: 03/13/25 Procedure(s): XR chest 2V Accession Number(s): [id number] cc: Leah Dee MD; Kelsey Noble NP Reason for Exam: R05.9 - Cough, unspecified CLINICAL HISTORY: R05.9 - Cough, unspecified 2 view chest Comparison: CT/SR - CT CHEST WITH IV CONTRAST - 06/11/23 15:56 EST CR/SR - XR CHEST 2 VIEWS - 04/24/23 12:38 EST Findings: No consolidation or pneumothorax/pleural effusion. Mild peribronchial wall thickening. Cardiomediastinal silhouette is normal. No mediastinal shift or tracheal deviation. Osseous structures intact. Impression: 1. Mild central bronchial wall thickening. 2. No airspace disease. This document has been electronically signed by: Holland Dailey MD on 03/15/2025 12:59:56 Dictated By: Holland Dailey MD Signed By: <Electronically signed by Holland Dailey MD in OV> 03/15/25 1301 DD/ 1259 TD/TT: 03/15/25 1259 Application Processor: Procedure Note Donotuseinterpreter, Image - 03/15/[address] [address] XRay Report Signed Patient: Billy VillalobosR#: [id number] : 2000Acct:[id number] Age/Sex: 24 / FADM Date: 03/13/25 Loc: [facility] Attending Dr: Kelsey Noble GROUP TESTER Ordering Physician: Kelsey Noble NP Date of Service: 03/13/25 Procedure(s): XR chest 2V Accession Number(s): [id number] cc: Leah Dee MD; Kelsey Noble NP Reason for Exam: R05.9 - Cough, unspecified CLINICAL HISTORY: R05.9 - Cough, unspecified 2 view chest Comparison: CT/SR - CT CHEST WITH IV CONTRAST - 06/11/23 15:56 EST CR/SR - XR CHEST 2 VIEWS - 04/24/23 12:38 EST Findings: No consolidation or pneumothorax/pleural effusion. Mild peribronchial wall thickening. Cardiomediastinal silhouette is normal. No mediastinal shift or tracheal deviation. Osseous structures intact. Impression: 1. Mild central bronchial wall thickening. 2. No airspace disease. This document has been electronically signed by: Holland Dailey MD on 03/15/2025 12:59:56 Dictated By: Holland Dailey MD Signed By: <Electronically signed by Holland Dailey MD in OV> 03/15/25 1301 DD/ 1259 TD/TT: 03/15/25 1259 Application Processor: [facility] External Provider IMG XR PROCEDURES Final Result * Rast Allergen (03/13/2025 8:03 AM EDT) [facility] Rast Allergen SEE NOTE [facility] Comment:SEE SCANNED REPORT I N EMR 03/13/2025 8:03 AM EDT 03/26/2025 9:22 AM EDT Narrative [facility] - 03/26/2025 9:23 AM EDT DOG AND CAT DANDER REFLEX Generic External Data Provider HISTORICAL/NON OR DERABLE LABS Final Result [facility] [address] [place] [phone] * (ABNORMAL) Respiratory Allergy Profile Region I (03/13/2025 8:03 AM EDT) Pathologist [facility] Mouse Urine Proteins (E72) IgE <0.10 kU/L [facility] Class 0 [facility] Cockroach (I6) IgE 0.77(A) kU/L [facility] Class 2 [facility] Dermatophagoides farinae (D2) IgE 0.51(A) kU/L [facility] Class 1 [facility] Cat Dander (E1) IgE >100(A) kU/L [facility] Class 6 [facility] Comment:THIS TEST WAS PERFOR MED AT:[employer] [address] [id number] CONNELLY MD Dog Dander (E5) IgE 18.10(A) kU/L [facility] Class 4 [facility] Comment:THIS TEST WAS PERFOR MED AT:[employer] [address] [phone] CONNELLY MD Ayaan Grass (G6) IgE 3.12(A) kU/L [facility] Class 2 [facility] Cladosporium herbarum (M2) IgE <0.10 kU/L [facility] Class 0 [facility] Aspergillus Fumigatis (M3) IgE <0.10 kU/L [facility] Class 0 [facility] Alternaria alternata (M6) IgE <0.10 kU/L [facility] Class 0 [facility] Comment:THIS TEST WAS PERFOR MED AT:[employer] [address] [phone] CONNELLY MD [place] (t6) IgE 1.66(A) kU/L [facility] Class 2 [facility] [place] (T7) IgE 26.50(A) kU/L [facility] Class 4 [facility] Cheraw Tree (T10) IgE 1.86(A) kU/L [facility] Class 2 [facility] [place] (T11) IgE 1.52(A) kU/L [facility] Class 2 [facility] [place] (T14) IgE 1.40(A) kU/L [facility] Class 2 [facility] White Yonatan (t15) IgE 1.70(A) kU/L [facility] Class 2 [facility] White Purcell (T70) IgE 0.84(A) kU/L [facility] Class 2 [facility] Common Ragweed (Short) (W1) IgE >100(A) kU/L [facility] Class 6 [facility] Mugwort (w6) IgE 1.58(A) kU/L [facility] Class 2 [facility] Dermatophagoides pteronyssinus (D1) IgE 0.45(A) kU/L [facility] Class 1 [facility] Bermuda Grass (g2) IgE 1.69(A) kU/L [facility] Class 2 [facility] Penicillium Notatum (M1) IgE 0.11(A) kU/L [facility] Class 0/1 [facility] Birch (T3) IgE 88.60(A) kU/L [facility] Class 5 [facility] Elm (t8) IgE 2.39(A) kU/L [facility] Class 2 [facility] Maple ([place]) (T1) IgE 1.50(A) kU/L [facility] Class 2 [facility] Rough Pigweed (W14) IgE 0.97(A) kU/L [facility] Class 2 [facility] Sheep Gird[place]ree (W18) IgE 1.23(A) kU/L [facility] Class 2 [facility] Allergen Comment See Below [facility] Comment: Specific Level of AllergenIGE Class kU/L Specific IGE Antibody ----- --------- 0 <0.10 Absent/Undetectable 0/1 0.10-0.34 Very Low Level 1 0.35-0.69 Low Level 2 0.70-3.49 Moderate Level 3 3.50-17.4 High Level 4 17.5-49.9 Very High Level 5 50-100 Very High Level 6 >100 Very High LevelThe clinical relevance of allergen results of0.10-0.34 kU/L are undetermined and intended forspecialist use.Allergens denoted with a include results usingone or more analyte specific reagents. In thosecases, the test was developed and its analyticalperformance characteristics have been determined by[employer]. It has not been cleared or approvedby the U.S. Food and Drug Administration. This assayhas been validated pursuant to the CLIA regulationsand is used for clinical purposes.THIS TEST WAS PERFORMED AT:[facility] [place] [phone] CONNELLY MD 03/13/2025 8:03 AM EDT 03/13/2025 8:03 AM EDT us Generic External Data Provider LAB BLOOD ORDERAB LES Final Result [facility] [address] [place] [phone] * (ABNORMAL) CBC auto differential (03/13/2025 8:03 AM EDT) White Blood Count 8.0 4.8 - 10.8 X10*3/uL [facility] Red Blood Count 4.75 4.20 - 5.50 X10*6/uL [facility] Hemoglobin 13.6 12.0 - 16.0 g/dl [facility] Hematocrit 40.8 37.0 - 47.0 % [facility] Mean Corpuscular Volume 85.9 80.0 - 98.0 fL [facility] Mean Corpuscular Hemoglobin 28.6 27.0 - 33.0 pg [facility] Mean Corpuscular HGB Conc 33.3 31.0 - 35.0 g/dl [facility] Red Cell Distribution Width 13.6 11.0 - 16.0 % [facility] Platelet Count 306 160 - 400 X10*3/uL [facility] Mean Platelet Volume 9.2(L) 9.4 - 12.3 fL [facility] Neutrophils Percent Auto 65.5 45 - 73 % [facility] Imm Gran Pct Auto 0.4 0.0 - 0.4 % [facility] Lymphocytes Percent Auto 23.2 20 - 40 % [facility] Monocytes Percent Auto 7.4 2 - 11 % [facility] Eosinophils Percent Auto 3.1 0 - 4 % [facility] Basophils Percent Auto 0.4 0 - 2 % [facility] NRBC Pct Auto 0.0 0.0 - 0.2 /100WBC [facility] Neutrophils Absolute Auto 5.2 2.0 - 8.3 x10*3/uL [facility] Imm Gran Abs Auto 0.03 0.00 - 0.03 X10*3/uL [facility] Lymphocytes Absolute Auto 1.9 1.2 - 4.9 X10*3/uL [facility] Monocytes Absolute Auto 0.6 0.1 - 1.2 X10*3/uL [facility] Eosinophils Absolute Auto 0.3 0.0 - 0.4 X10*3/uL [facility] Basophils Absolute Auto 0.0 0.0 - 0.2 X10*3/uL [facility] NRBC Abs Auto 0.000 0.0 - 0.012 X10*3/uL [facility] 03/13/2025 8:03 AM EDT 03/13/2025 8:03 AM EDT us Generic External Data Provider LAB BLOOD ORDERAB LES Final Result [facility] [address] [place] [phone] * (ABNORMAL) KALEE Screen,IFA, with Reflex to Titer and Pattern (03/13/2025 8:03 AM EDT) Anti Nuclear Antibody Screen POSITIVE (A) NEGATIVE [facility] Comment:KALEE IFA is a first l ine screen for detecting thepresence of up to approximately 150 autoantibodies invarious autoimmune diseases. A positive KALEE IFA resultis suggestive of autoimmune disease and reflexes totiter and pattern. Further laboratory testing may beconsidered if clinically indicated.For additional information, please refer tohttp://education.[employer]/faq/VRN413(This link is being provided for informational/educational purposes only.) KALEE Titer 1:80(A) titer [facility] Comment:A low level KALEE tite r may be present in pre-clinicalautoimmune diseases and normal individuals. Reference Range <1:40 Negative 1:40-1:80 Low Antibody Level >1:80 Elevated Antibody Level KALEE Pattern Nuclear, Speckled (A) [facility] Comment:Speckled pattern is associated with mixed connectivetissue disease (MCTD), systemic lupus erythematosus(SLE), Sjogren's syndrome, dermatomyositis, andsystemic sclerosis/polymyositis overlap.AC-2,4,5,29: SpeckledInternational Consensus on KALEE Patterns(https://doi.org/10.1515/kvpc-0707-6691)THIS TEST WAS PERFORMED AT:[facility] [place] [phone] CONNELLY MD KALEE TITER 2 (REF LAB) [facility] KALEE Pattern 2 [facility] KALEE TITER 3 [facility] KALEE PATTERN 3 [facility] 03/13/2025 8:03 AM EDT 03/13/2025 8:03 AM EDT us Generic External Data Provider LAB BLOOD ORDERAB LES Final Result [facility] [address] [place] [phone] * (ABNORMAL) Immunoglobulin E (03/13/2025 8:03 AM EDT) Immunoglobulin E 1093(A) <XS=707 kU/L [facility] 03/13/2025 8:03 AM EDT 03/13/2025 8:03 AM EDT us Generic External Data Provider LAB BLOOD ORDERAB LES Final Result Performing Organization Address City/[facility]/ZIP Co de Phone Number [facility] [address] [place] [phone] * Hepatitis C Antibody with Reflex to HCV, RNA, Quantitative, Real-Time PCR (04/28/2024 3:28 PM EST) Hepatitis C Antibody Nonreactive Nonreactive [facility] Comment:Antibodies to HCV no t detected; does not exclude early acuteHCV infection. Blood Venous blood specimen / Unknown 04/28/2024 3:28 PM EST 04/28/2024 4:07 PM EST us Leah Gruber MD LAB BLOOD ORDERAB LES Final Result Performing Organization Address [facility]/ZIP Co de Phone Number [facility] [address] [place] [phone] * HIV-1/2 Antigen and Antibodies, Fourth Generation, with Reflexes (04/28/2024 3:28 PM EST) HIV AB/AG Nonreactive Nonreactive [facility] Comment:HIV-1 p24 Ag and/or HIV-1/HIV-2 Ab not detected.A test result that is nonreactive does not exclude thepossibility of exposure to or infection with HIV-1 and/orHIV-2. Nonreactive results in this assay for individualswith prior exposure to HIV-1 and/or HIV-2 may be due toantigen and antibody levels that are below the limit ofdetection of this assay.The [employer] HIV Ag/Ab Combo assay result andsupplemental assay results should be interpreted inconjunction with the patient's clinical presentation,history and other laboratory results. If the results areinconsistent with clinical evidence, additional testing issuggested to confirm the result. Blood Venous blood specimen / Unknown 04/28/2024 3:28 PM EST 04/28/2024 4:07 PM EST us Leah Gruber MD LAB BLOOD ORDERAB LES Final Result [facility] [address], [place] [phone] * Chlamydia/N. Gonorrhoeae RNA, TMA, Urogenitial (04/28/2024 3:00 PM EST) CT PCR NOT DETECTED Not Detect. [facility] Comment:A not detected test result [...] psychologicalconsequences. NG PCR NOT DETECTED Not Detect. [facility] Comment:A not detected test result [...] PM EST 04/28/2024 4:36 PM EST Narrative [facility] - 04/29/2024 5:34 AM EST Vaginal us Leah Gruber MD LAB MICROBIOLOGY - GENERAL ORDERABLES Final Result [facility] [address] [place] [phone] * Pap Smear (09/04/2023 11:28 AM EDT) Swab Cervix uteri structure / Unknown 09/04/2023 11:28 AM EDT 09/06/2023 9:30 AM EDT Narrative [facility] - 09/15/2023 5:56 PM EDT ----- ------- Name: Susanne Villalobosayjules Age/Sex: 23/F : 2000 Unit#: [id number] Attend Dr: Kelsey Noble NP Re09/04/23 Status: DEP REF Location: [facility] Disch: ----- ------- SPEC : [id number] RECD: 09/06/23 STATUS: BERTIN ETIENNE NUM: [id number] AMANDA: 09/04/23-[address]: MAI FLORES CNM ENTERED: 09/06/23-1047 SP TYPE: Pap Smr OTHR DR: ORDERED: Pap Smear Interpretation Satisfactory for evaluation. Negative for intraepithelial lesion or malignancy. Clinical Information LMP: Contraceptive patch Previous PAP test: Initial pap Material Received ThinPrep-Vaginal/Cervical ----- ------- Signed (signature on file) Brenda Davis 09/15/23 1756 ----- ------- END OF REPORT Mai Flores [facility] CYTOLOGY ORDERABLES F inal Result [facility] [address] [place] [phone] from Last 3 Months or Most Recently Relevant to Health Maintenance Insurance [facility] C3 Care Teams Burnisher Relationship Specialty Start Date End Date Leah Dee MD [address] [place] [phone] PCP - General Internal Medicine 02/19/23
--- OUTSIDE RECORDS SUMMARY | 2025-03-31 20:53 | XMS_ITS | Encounter Summary ---
Author Organization [employer] Address [address] [place] [address] [address] [place] [address] Care Team Providers Care Manager Marketing Sales Name Role Phone Leah Dee MD Primary Care Pro vider Reason for Visit * Reason Onset Date Comments Nurse Triage 02/26/2023 Encounter Details Date Type Department Care Team (Late st Contact Info) Description 02/26/[address] [facility] [address] [place], [place] [phone] Leah Dee MD [address] [place], [place] [phone] Nurse Triage Social History Tobacco Use Types [...] on filedocumented in this encounter Care Teams Manager Marketing Sales Relationship Specialty Start Date End Date Leah Dee MD [address] [place] [phone] PCP - General Internal Medicine 02/19/23 documented as of this encounter
== END 2025-03-31 15:48 | disposition home or self-care (01) ==
LOC: HO.HPSW 14:44
PROVIDERS: PCP Student in an Organized Health Care Education/Training Program; Visit Provider Nurse Practitioner Family
DX: J45.909 Unspecified asthma, uncomplicated (principal); Z91.09 Other allergy status, other than to drugs and biological substances
CPT/HCPCS: 99214

== ENCOUNTER → 2025-03-31 14:43 | Outpatient (BNVA) | payer MEDICAID, SELFPAY | PROVIDERS: PCP Student in an Organized Health Care Education/Training Program; Visit Provider Nurse Practitioner Family | DX: J45.909 Unspecified asthma, uncomplicated (principal); R05.9 Cough, unspecified; Z91.09 Other allergy status, other than to drugs and biological substances | CPT/HCPCS: 99212 ==